=== PATIENT | male | born 1960 | race Caucasian/White ===

== ENCOUNTER 2017-04-20 08:26 | Inpatient (IN) | payer OTHER ==
[~2017-04-20] VITALS: Ht 175.3 cm; Wt 63.5 kg
[~2017-04-20 08:26] MED LIST: DUONEB 3 MG/3 ML3 ML INH; ENULOSE 2020 GM/30 M PO; FOLIC ACID 1 MG PO; FOLIC ACID0.4 MG PO; FUROSEMIDE40 MG PO; GOOD NEIGHBOR100 M5 PR; LEVOTHROID0.15 MG PO; LEVOTHYROXINE0.05 M1 PO; LORAZEPAM1 MG PO; MAG-OX 400400 MG PO; MAGNESIUM OXID400 MG PO; MIRALAX17 GM PO; MULTIVITAMIN PO; NOVAPLUS V0.09 MG/Ac INH; PRILOSEC OTC20 MG PO; PROAIR HFA0.09 MG/Ac INH; PROTONIX 40MG T40 MG PO; SPIRIVA 18 MCG18 MCG INH; SYMBICORT 160/41 PUF INH; Senokot S PO; TAMSULOSIN HYD0.4 MG PO; Theragran Vitamins PO; VENTOLIN1 PUF INH; VITAMIN B1100 MG PO; ZORVOLEX18 MG TOP
--- NOTE | 2017-04-20 08:34 | NUR ---
PT BIBA FROM HOME FOR COUGH X 12 DAYS. PRODUCTIVE WHITE SPUTUM. ALSO C/O WEAKNESS. DENIES RECENT FALLS BUT IS AFRAID HE WILL FALL DUE TO HIS WEAKNESS. RA SATS 98%, DR MALDONADO AT BEDSIDE FOR EVAL UPON PT'S ARRIVAL TO ROOM.
--- NOTE | 2017-04-20 08:39 | ED DYSPNEA/ASTHMA COMPLAINT ---
History of Present Illness General Chief Complaint: Dyspnea (COPD, CHF, Other) Stated Complaint: BIBA COUGH X 12 DAYS Source: patient, old records, EMS Exam Limitations: no limitations Vital Signs & Intake/Output Vital Signs & Intake/Output Vital Signs Date Time Temp Pulse Resp B/P B/P Pulse O2 O2 Flow FiO2 Mean Ox Delivery Rate 04/20 1015 97.0 96 20 98/62 96 Room Air 04/20 1000 98 Room Air 04/20 0832 97.8 120 20 87/67 98 Room Air Allergies Coded Allergies: NO KNOWN ALLERGIES (10/15/12) Reconcile Medications No Known Home Medications Triage Note: PT BIBA FROM HOME FOR COUGH X 12 DAYS. PRODUCTIVE WHITE SPUTUM. ALSO C/O WEAKNESS. DENIES RECENT FALLS BUT IS AFRAID HE WILL FALL DUE TO HIS WEAKNESS. RA SATS 98%, DR MALDONADO AT BEDSIDE FOR EVAL UPON PT'S ARRIVAL TO ROOM. Triage Nurses Notes Reviewed? yes HPI: Patient presents with a worsening productive cough, chills and rib pain that has been worsening over the past 2 weeks. Patient states that he feels very short of breath and that gets worse when he walks around. Patient states he has a productive cough and now whenever he coughs he gets a sharp stabbing pain in his left lower rib cage. There is no pain when he is not coughing. Patient denies any orthopnea. Patient denies any chest pain except as noted above with the rib pain. There is no nausea or vomiting however he does have anorexia. The pain in his left lower rib cage he rates as a 7 out of 10. There is no radiation of the pain. Past History Travel History Traveled to [place] past 21 day No Medical History Any Pertinent Medical History? see below for history Neurological: NONE EENT: NONE Cardiovascular: DVT s/p IVC filter Respiratory: NONE Gastrointestinal: Hx GI bleed Hepatic: NONE Renal: NONE Musculoskeletal: NONE Psychiatric: alcohol dependence, history of nicotine dependence Endocrine: pancreatitis history of borderline/ low serum thyroxine Blood Disorders: IVC FILTER Cancer(s): TRACHEAL ESOPHAGEAL History of MRSA: No History of VRE: No History of CDIFF: No Surgical History Surgical History: non-contributory Psychosocial History Who do you live with Family Services at Home None What is your primary language Luxembourgish Tobacco Use: Current Daily Use Daily Tobacco Use Amount/Type: => 5 Cigarettes daily ETOH Use: denies use Illicit Drug Use: denies illicit drug use Family History Family History, If Any: Relation not specified for: FH: cancer of digestive organ FH: stroke Hx Contributory? No Review of Systems Review of Systems Constitutional: Reports: see HPI, chills. EENTM: Reports: no symptoms. Respiratory: Reports: see HPI, cough, short of breath, sputum production. Cardiovascular: Reports: see HPI, chest pain. GI: Reports: see HPI. Genitourinary: Reports: no symptoms. Musculoskeletal: Reports: no symptoms. Skin: Reports: no symptoms. Neurological/Psychological: Reports: no symptoms. Hematologic/Endocrine: Reports: no symptoms. Immunologic/Allergic: Reports: no symptoms. All Other Systems: Reviewed and Negative Physical Exam Physical Exam General Appearance: well developed/nourished, alert, awake, moderate distress Head: atraumatic, normal appearance Eyes: Bilateral: PERRL, EOMI. Ears, Nose, Throat: normal pharynx, normal ENT inspection, hearing grossly normal Neck: normal inspection, supple, full range of motion Respiratory: decreased breath sounds, rhonchi, TENDER TO PALPATION Cardiovascular: regular rate/rhythm, normal peripheral pulses Gastrointestinal: normal bowel sounds, soft, non-tender, no organomegaly Extremities: normal inspection, normal capillary refill, normal range of motion, no edema Neurologic/Psych: no motor/sensory deficits, awake, alert, oriented x 3, normal mood/affect Skin: intact, normal color, warm/dry Lymphatic: no anterior cervical austyn Comments: Cachectic appearing Core Measures ACS in differential dx? Yes ASA ordered for poss ACS? No-ACS ruled out Severe Sepsis Present: No Septic Shock Present: No Progress Differential Diagnosis: AMI, bronchitis, costochondritis, COPD, musculoskeletal pain, pulmonary embolism, pneumonia, pneumothorax Plan of Care: Orders Procedure Date/time Status Regular Diet 04/20 L Active Admit to inpatient 04/20 1055 Active BLOOD CULTURE 04/20 1043 Active URINALYSIS 04/20 0837 Active TROPONIN LEVEL 04/20 0837 Complete ETHANOL 04/20 0837 Complete COMPREHENSIVE METABOLIC PANEL 04/20 0837 Complete CBC WITHOUT DIFFERENTIAL 04/20 0837 Complete EKG 04/20 0837 Active Current Medications Sig/Steven Start time Last Medication Dose Stop Time Status Admin Azithromycin 500 MG ONCE ONE 04/20 1045 UNVr (Zithromax) 04/20 1144 Sodium Chloride 250 ML (Normal Saline 0.9%) Ceftriaxone Sodium 1,000 MG ONCE ONE 04/20 1045 UNVr (Rocephin) 04/20 1046 Laboratory Tests 04/20/17 0849: Anion Gap 13, Estimated GFR > 60, BUN/Creatinine Ratio 21.3, Glucose 121 H, Calcium 8.3 L, Total Bilirubin 1.0, AST 41, ALT 42, Alkaline Phosphatase 250 H , Troponin I < 0.01, Total Protein 5.7 L, Albumin 2.6 L, Globulin 3.1, Albumin /Globulin Ratio 0.8 L, CBC w Diff MAN DIFF ORDERED, RBC 3.50 L, MCV 96.2 H, MCH 32.1 H, RDW 14.6 H, MPV 6.1 L, Gran % 93.2 H, Lymphocytes % 3.3 L, Monocytes % 3.5, Eosinophils % 0, Basophils % 0 L, Absolute Granulocytes 14.5 H, Segmented Neutrophils 86 H, Band Neutrophils 7 H, Absolute Lymphocytes 0.5 L, Lymphocytes 2 L, Monocytes 5, Absolute Monocytes 0.6, Absolute Eosinophils 0 , Absolute Basophils 0, Platelet Estimate ADEQUATE, Normocytic RBCs VERIFIED, Normochromic RBCs VERIFIED, PUBS MCHC 33.4, Serum Alcohol 16.0 Microbiology 04/20 1051 BLOOD: Blood Culture - RECD 04/20 1043 BLOOD: Blood Culture - ORD Diagnostic Imaging: Viewed by Me: Radiology Read. Discussed w/RAD: Radiology Read. CXR Impression: PATIENT: RENE LAGUNAS JR PRESENT AGE: 56 PATIENT ACCOUNT NO: [id number] : 56 LOCATION: [facility] ORDERING PHYSICIAN: BERTHA MALDONADO MD SERVICE DATE: 04/20/17 EXAM TYPE: RAD - XRY-CHEST XRAY, PA AND LATERAL EXAMINATION: XR CHEST CLINICAL INFORMATION: Cough COMPARISON: Chest x-ray dated 05/31/2016 TECHNIQUE: 2 views of the chest were obtained. FINDINGS: Significant airspace opacity noted in the left upper lobe notably involving the superior lingular segment and anterior segment left upper lobe. Findings are suspicious for lobar pneumonia in the appropriate clinical setting. Differential possibility includes bronchial obstruction and atelectatic changes Follow-up chest x-ray after treatment is recommended. No gross pleural effusion. IMPRESSION: Wedge-shaped opacity left upper lobe suspicious for lobar pneumonia in the appropriate clinical setting. Differential possibility includes bronchial obstruction and atelectasis. Follow-up chest x- ray after treatment recommended. DICTATED BY: ASIA MILLAN MD DATE/TIME DICTATED:04/20/17927 EXPORT DOCUMENTS CLERK:SWAPNIL DATE/TIME TRANSCRIBED:927 CONFIDENTIAL, DO NOT COPY WITHOUT APPROPRIATE AUTHORIZATION. < Electronically signed in Other Vendor System> SIGNED BY: ASIA MILLAN MD 04/20/17 0934 Initial ED EKG: NSR, nonspecific ST T wave chg Prior EKG: unchanged Departure Departure Disposition: STILL A PATIENT Condition: Fair Clinical Impression Primary Impression: Pneumonia Secondary Impressions: Hyponatremia Referrals: MANUEL MARTINEZ MD (PCP/Family) Departure Forms: Customer Survey General Discharge Information Prescriptions: Current Visit Scripts No Known Home Medications Admission Note Spoke With: DENIS FRITZ M.D Documentation of Exam: Documentation of any treatments & extenuating circumstances including Concerns Regarding Discharge (functional status, medication knowledge or non-compliance, living conditions, etc.) that warrant an admission rather than observation: [IV fluids, IV antibiotics, pulmonary consult patient does have a history of cancer and he is 3 years post-chemotherapy.] Critical Care Note Critical Care Note Critical Care Time: mins: (45 MIN)
--- NOTE | 2017-04-20 08:50 | NUR ---
PT TO X-RAY
--- NOTE | 2017-04-20 08:53 | NUR ---
LABS DRAWN AND SENT BY THIS [facility] BLUE, SST, LAV, PINK, ARREAGA
--- NOTE | 2017-04-20 09:04 | NUR ---
BACK FROM X-RAY
[2017-04-20 09:07] LABS: ABSOLUTE BASOPHIL COUNT 0 /CUMM (0.0-0.2); ABSOLUTE EOSINOPHIL COUNT 0 /CUMM (0.0-0.7); ABSOLUTE GRANULOCYTE CT 14.5 /CUMM (1.4-6.5); ABSOLUTE LYMPH COUNT 0.5 /CUMM (1.2-3.4); ABSOLUTE MONOCYTE COUNT 0.6 /CUMM (0.10-0.60); BASOPHIL % 0 % (0.0-2.0); EOSINOPHIL % 0 % (0-5); GRANULOCYTE % 93.2 % (42.2-75.2); HEMATOCRIT 33.6 % (42-52); MEAN CORPUSCULAR HGB 32.1 PG (27.0-31.0); MEAN CORPUSCULAR HGB CONC 33.4 G/DL (33.0-37.0); MEAN CORPUSCULAR VOLUME 96.2 FL (80.0-94.0); MEAN PLATELET VOLUME 6.1 FL (7.4-10.4); PLATELET COUNT 401 /CUMM (130-400); RBC DISTRIBUTION WIDTH 14.6 % (11.5-14.5); WHITE BLOOD CELL COUNT 15.6 /CUMM (4.8-10.8)
--- NOTE | 2017-04-20 09:34 | RADIOLOGY REPORT ---
EXAMINATION: XR CHEST CLINICAL INFORMATION: Cough COMPARISON: Chest x-ray dated 05/31/2016 TECHNIQUE: 2 views of the chest were obtained. FINDINGS: Significant airspace opacity noted in the left upper lobe notably involving the superior lingular segment and anterior segment left upper lobe. Findings are suspicious for lobar pneumonia in the appropriate clinical setting. Differential possibility includes bronchial obstruction and atelectatic changes Follow-up chest x-ray after treatment is recommended. No gross pleural effusion. IMPRESSION: Wedge-shaped opacity left upper lobe suspicious for lobar pneumonia in the appropriate clinical setting. Differential possibility includes bronchial obstruction and atelectasis. Follow-up chest x-ray after treatment recommended.
--- NOTE | 2017-04-20 09:56 | NUR ---
PT. GIVEN URINAL, REQUESTED TO GIVE URINE SAMPLE WHEN ABLE
--- NOTE | 2017-04-20 10:30 | NUR ---
AWARE OF NEED FOR URINE. URINAL AT BEDSIDE. AWAITING POC/DISPO. Informed waiting has been performed.
--- NOTE | 2017-04-20 10:44 | NUR ---
DR MALDONADO IN TO REVIEW POC. ANTICIPATE ADMISSION.
--- NOTE | 2017-04-20 10:51 | NUR ---
LUNCH ORDERED. PT ASKING FOR ENSURE, ORDERED WITH LUNCH
--- NOTE | 2017-04-20 10:54 | NUR ---
1ST SET OF CULTURES DRAWN AND SENT BY THIS [facility]
--- NOTE | 2017-04-20 10:56 | NUR ---
2ND SET OF CULTURES DRAWN BY THIS [facility]
--- NOTE | 2017-04-20 11:32 | NUR ---
PT ADMITTED TO ROOM 229-1
[2017-04-20 11:43] VITALS: BP 100/60
--- NOTE | 2017-04-20 11:43 | NUR ---
PT STATES LAST DRINK WAS 3 DAYS AGO. CIWA INITIATED.
--- NOTE | 2017-04-20 11:54 | History & Physical ---
[facility] 04/20/17 1154: General Information and HPI MD Statement: I have seen and personally examined RENE LAGUNAS and documented this H& P. The patient is a 56 year old M who presented with a patient stated chief complaint of [worsening cough and shortness of breath]. 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 He presents with worsening shortness of breath and cough for the past 12 days. His cought is productive of brownish sputum with no hemoptysis. His cough and sputum production is worsened by standing upright and by ambulation. He also has worsening shortness of breath with wheezing especially when he walks. He has been getting progressively weaker and has poor appetite for over 2 weeks now. He denies fevers, chills or malaise. He has some symptoms of dysphagia and loss of appetite which has been going on for several months. He has lost about 20 lbs over the past 12 days and about 40 lbs since the start of the year. He denies abdominal pain, constipation or diarrhea or hematochezia. He denies dysuria. He does not have any sick/coughing contacts and lives in a room in his niece's house. He is unemployed and has no "run out of disability payments". 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 Of note, he has not seen any physician in at least a year. He drinks alcohol and his last drink was 3 beers about 3 days ago. He also stated that he had a ? "Cauterization of his lung" by a doctor in [facility] or [place] last year for hemoptysis. Allergies/Medications Allergies: Coded Allergies: NO KNOWN ALLERGIES (10/15/12) Home Med list No Known Home Medications Past History Travel History Traveled to [place] past 21 day No Medical History Neurological: NONE EENT: NONE Cardiovascular: DVT s/p IVC filter Respiratory: NONE Gastrointestinal: Hx GI bleed Hepatic: NONE Renal: NONE Musculoskeletal: NONE Psychiatric: alcohol dependence, history of nicotine dependence Endocrine: pancreatitis history of borderline/ low serum thyroxine Blood Disorders: IVC FILTER Cancer(s): TRACHEAL ESOPHAGEAL History of MRSA: No History of VRE: No History of CDIFF: No Surgical History Surgical History: non-contributory Past Family/Social History Family History Relations & Conditions if any Relation not specified for: FH: cancer of digestive organ FH: stroke Psychosocial History Where do you live? Home Who Do You Live With? 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 Denies: fever, malaise, weakness. EENTM: Denies: blurred vision, nasal congestion, throat pain. Cardiovascular: Denies: chest pain, palpitations, syncope. Respiratory: Reports: wheezing. Denies: hemoptysis, short of breath. GI: Denies: bloating, constipation, melena, nausea, vomiting. Genitourinary: Denies: dysuria. Musculoskeletal: Denies: joint pain, muscle stiffness. Exam & Diagnostic Data Last 24 Hrs of Vital Signs/I&O Vital Signs Date Time Temp Pulse Resp B/P B/P Pulse O2 O2 Flow FiO2 Mean Ox Delivery Rate 04/20 1404 96.8 63 18 94/62 97 /01 1327 Room Air 04/20 1143 98.9 100 20 100/60 06/ 1142 98.9 100 20 100/60 96 Room Air 04/20 1015 97.0 96 20 98/62 96 Room Air 04/20 1000 98 Room Air 04/20 0832 97.8 120 20 87/67 98 Room Air Intake & Output 04/20 1600 04/20 0800 04/20 0000 Intake Total 350 Output Total Balance 350 Intake, IV 350 Patient 140 lb Weight Physical Exam General Appearance Alert, Oriented X3, Cooperative, No Acute Distress, Cachectic Skin No Rashes Skin Temp/Moisture Exam: Warm/Dry Sepsis Skin Exam (color): Normal for Ethnicity HEENT Atraumatic, PERRLA, EOMI Neck Supple, No JVD, No thryomegaly Lymphatic Cervical nl Cardiovascular Regular Rate, Normal S1, Normal S2, No Murmurs Lungs Bronchial breath sounds in left lower lung with reduced breath sounds in the left upper lobe, Right lung has few basilar crackles and wheeze with normal air entry Abdomen Normal Bowel Sounds, Soft, No Tenderness, No Hepatospenomegaly, No Masses Neurological Normal Speech, Strength at 5/5 X4 Ext, Normal Tone Extremities No Edema, Normal Pulses Vascular Normal Pulses, Pulses Symmetrical Sepsis Peripheral Pulse Location: Radial Sepsis Peripheral Pulse Exam: Normal Sepsis Cap Refill Exam: <2 Sec Last 24 Hrs of Labs/Mane: Laboratory Tests 04/20/17 0849: Anion Gap 13, Estimated GFR > 60, BUN/Creatinine Ratio 21.3, Glucose 121 H, Hemoglobin A1c Pending, Calcium 8.3 L, Total Bilirubin 1.0, AST 41, ALT 42, Alkaline Phosphatase 250 H, Troponin I < 0.01, Total Protein 5.7 L, Albumin 2.6 L, Globulin 3.1, Albumin/Globulin Ratio 0.8 L, TSH 8.130 H, CBC w Diff MAN DIFF ORDERED, RBC 3.50 L, MCV 96.2 H, MCH 32.1 H, RDW 14.6 H, MPV 6.1 L , Gran % 93.2 H, Lymphocytes % 3.3 L, Monocytes % 3.5, Eosinophils % 0, Basophils % 0 L, Absolute Granulocytes 14.5 H, Segmented Neutrophils 86 H, Band Neutrophils 7 H, Absolute Lymphocytes 0.5 L, Lymphocytes 2 L, Monocytes 5, Absolute Monocytes 0.6, Absolute Eosinophils 0, Absolute Basophils 0, Platelet Estimate ADEQUATE, Normocytic RBCs VERIFIED, Normochromic RBCs VERIFIED , PUBS MCHC 33.4, Serum Alcohol 16.0 Microbiology 04/20 1203 URINE ROUT: Urine Culture - COLB 04/20 1203 LOWER RESP: Respiratory Culture - COLB 04/20 1203 LOWER RESP: Gram Stain - COLB 04/20 1055 BLOOD: Blood Culture - RECD 04/20 1051 BLOOD: Blood Culture - RECD Diagnostic Data EKG Results Sinus tachycardia, non specific T wave changes. Assessment/Plan Assessment: Mr. 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 He presents with worsening shortness of breath and productive cough for the past 12 days along with weakness. In addition, he is malnourished and cachectic. Given, his past history of tracheal cancer, his current symptoms are concerning for pneumonia with possible bronchial obstruction from a recurrence of his cancer. He also has some symptoms of dysphagia and loss of appetite. Problem list 1. Sepsis from community acquired pneumonia 2. Concern for bronchial obstruction from recurrence of tracheal cancer 3. Dysphagia 4. Malnutrition 5. Alcohol abuse Plan 1. Sepsis from community acquired pneumonia * Admit to general medicine * Lactic acid now, and repeat in 3 hrs * Blood culturesX2 * Sputum cultures, urine culture * IV normal saline @200 cc/hr * IV ceftriaxone 1 g daily * IV azithromycin 500 mg daily * Monitor vital signs closely * Monitor CBC for WBC * PO tylenol for fever 2. Concern for bronchial obstruction from recurrence of tracheal cancer * Given his past history of cancer, we will obtain a pulmonary consultation * CT Chest and CT neck with IV contrast * TRC evaluation 3. Dysphagia * Speech\\swallow evaluation in the AM * Mechanical soft diet with thin liquids pending evaluation 4. Malnutrition with hyponatremia * patient has hyponatremia likely related to chronic malnutrition * IV normal saline at 75 cc/hr * Repeat Na in 3 hours time * Monitor electrolytes and Na * Nutrition consult in the AM 5. Alcohol abuse * Stated that his last drink was 3 days ago * Monitor CIWA protocol * IV ativan as per CIWA scores 6. DVT prophylaxis * SC lovenox 40 Units daily 7. Code status * Full code As Ranked By This Provider Problem List: 1. Sepsis 2. Pneumonia 3. Hyponatremia Core Measures/Miscellaneous Acute Coronary Syndrome ACS Diagnosis: No Cerebrovascular Accident CVA/TIA Diagnosis: No Congestive Heart Failure CHF Diagnosis: No Venous Thromboembolism VTE Risk Factors: Acute medical illness, Age > 40, Cancer/chemo/oth therapy No Mech VTE prophylaxis d/t: No contraindications No VTE Pharm Prophylaxis d/t: No contraindications VTE Diagnosis: No VTE Type: NONE VTE Confirmed by (Test): NONE Severe Sepsis Severe Sepsis Present: No Septic Shock Septic Shock Present: No Miscellaneous Documentation Attending Case Discussed With: LAUREL JOHNSON MD Primary Care Physician: MANUEL MARTINEZ MD Patient sees these Specialists None Level of Patient Care: General Medicine LAUREL JOHNSON MD 04/20/17 1407: Attending MD Review Statement Attending Statement Attending MD Statement: examined this patient, discuss w/resident/PA/LOSS PREVENTION CONSULTANT, agreed w/resident/PA/LOSS PREVENTION CONSULTANT, reviewed EMR data (avail) Attending Assessment/Plan: 56M PMH tracheal cancer s/p chemoradiaton, GERD, EtOH abuse admitted for progressive shortness of breath, dyspnea on exertion, cough with brown sputum, and 20 pound unintentional weight loss over the past month. Patient feels weak and appears malnourished. He reports difficulty swallowing thicker foods, no issues with liquids. His appetite is decreased. He continues to drink and smoke. Afebrile, borderline low BP, HR 120 on admission, saturating well. WBC 15.6, sodium 127, normal renal function. 1. GUY pneumonia 2. Sepsis 3. Malnutrition 4. Unintentional weight loss 5. Dysphagia 6. History of tracheal cancer Plan - Admit to general medicine - Start Ceftriaxone and Azithromycin - Sputum cultures - Nutrition consult - Monitor electrolytes - Pulmonary consult - CT neck with contrast to evaluate for potential return of malignancy - Speech therapy consult for dysphagia - IV hydration - Monitor sodium level - Continue home medications - PRN Ativan per CIWA in case of eventual withdrawal symptoms - DVT PPx
--- NOTE | 2017-04-20 11:55 | NUR ---
REPORT TO CARRILLO PEREZ ON 2NA.
--- NOTE | 2017-04-20 12:14 | NUR ---
MEDICATED WITH PERCOCET PER EMAR PRIOR TO TRANSFER TO FLOOR.
--- NOTE | 2017-04-20 12:54 | NUR ---
PT TO FLOOR VIA STRETCHER. ALL PAPERWORK AND BELONGINGS SENT. CLNICAL STATUS UNCHANGED.
[2017-04-20 14:04] VITALS: BP 94/62
--- NOTE | 2017-04-20 14:09 | Admission Certification ---
Admission Certification Certification Statement - As attending physician, I certify that at the time of - admission, based on clinical presentation, severity of - symptoms, need for further diagnostic testing and - therapeutic interventions, and risk of adverse outcomes - without in-hospital treatment, in my clinical assessment, - this patient requires an acute hospital stay for a minimum - of two nights or longer. I have also considered psychsocial - factors such as support system, advanced age, financial - issues, cognitive issues, and failed out-patient treatments, - past re-admission history, safety of patient, and lack of - compliance as applicable. Specific rationale supporting this admission is: Sepsis secondary to pneumonia
--- NOTE | 2017-04-20 17:00 | NUR ---
PT TAKEN DOWN TO CT SCAN AT THIS TIME
--- NOTE | 2017-04-20 21:49 | CT SCAN REPORT ---
EXAMINATION: CT CHEST WITH CONTRAST CLINICAL INFORMATION: Productive cough. Shortness of breath. History of tracheal cancer. Presumptive diagnosis of pneumonia. Question bronchial obstruction. COMPARISON: CT scan of the chest dated 10/26/2013. CT scan of the abdomen dated 04/20/2015. TECHNIQUE: Multidetector volumetric CT imaging of the chest was obtained after the administration of 60 mL of intravenous Optiray 350. Sagittal and coronal reformations were obtained. DLP: 174.40 mGy-cm. FINDINGS: LUNGS: There is diffuse circumferential soft tissue thickening involving the trachea and the tracheal bifurcation extending along the right and left main stem bronchi. This is more extensive than on the previous CT scan from 10/26/2013 and measures up to 0.4 cm in thickness. There is mild circumferential luminal narrowing of the left mainstem bronchus. Abrupt cut off of the left upper lobe bronchus is seen with large area of dense consolidation and volume loss seen involving the entire lingula and likely portions of the anterior segment of the left upper lobe. Central areas of the consolidated lingular segment appear to have a liquefactive component with irregular hypodense areas with internal loculations of air seen, suspicious for developing abscesses. The consolidation from the lingula appears to extend across the major fissure into the anterior inferior aspect of the left lower lobe with dense consolidation seen in this location. Remainder of the left lower lobe is remarkable only for some mild dependent atelectasis. There remains aeration of the left upper lobe apical posterior and anterior segments with patchy reticular and groundglass opacity seen. The right lung is fully expanded. In the right upper lobe peripherally, an irregularly shaped 1.3 x 0.8 cm nodule is seen with associated thick and irregular bands seen extending to the pleural surfaces. There are also small adjacent satellite nodules seen. There is underlying centrilobular and paraseptal emphysema. The central airways are thickened. No pleural effusion is seen. LYMPHATIC STRUCTURES: No mediastinal, hilar or axillary adenopathy. THYROID GLAND: Unremarkable to the extent included. CARDIOVASCULAR STRUCTURES: Aortic and heart size normal. Trace pericardial effusion. UPPER ABDOMEN: Included portions of the solid organs in the upper abdomen within normal limits. OSSEOUS STRUCTURES: There is moderate vertebral endplate spurring seen throughout the lower cervical and the thoracic spine. No suspicious bone findings are seen. IMPRESSION: 1. Complete cut off of the left mainstem bronchus is seen, suspicious for an endobronchial mass. Associated postobstructive dense consolidation and volume loss is seen in the lingula and portions of the anterior segment of the left upper lobe with suspicion of internal evolving abscesses. Less extensive consolidative changes are seen in the apical posterior segment of the left upper lobe. 2. Diffuse thickening of the thoracic trachea and bifurcation is seen, progressive when compared to the 2013 exam. This may represent infiltrative malignancy in this patient with known history of tracheal cancer or may represent posttreatment changes. Close clinical correlation is requested with endobronchial biopsy for further assessment. 3. Irregularly shaped nodular density with associated satellite nodules in the right upper lobe. This may represent a small focus of endobronchial spread of infection versus a malignant mass. Short interval follow-up evaluation post treatment of the left lung pneumonia is recommended to document resolution of findings. 4. Mild emphysema. Findings discussed with Dr. Alana Nation 04/20/2017, 9:40 PM.
[2017-04-20 23:37] VITALS: BP 100/60
[2017-04-21] VITALS: BP 100/60
--- NOTE | 2017-04-21 01:16 | Event Note ---
Event Note Event Note: Dr. Pugh spoke to me regarding the CT results. BC grew GPC, will repeat BCX2. Patient has received ceftriaxone and azithromycin. Obstructive pneumonia and pulmonary abscess is now in our differentials Plan: Started clindamycin for anaerobic coverage. Continue ceftriazone and azithromycin Pulmonary evaluation in am ENT evaluation in am Repeat BCX2 Noted lactic acid trended up to 3, despite receiving IVF. Gave 1L bolus. Repeat lactic acid came down to 2.1, Na also improved from 127 to 130.
[2017-04-21 06:00] VITALS: BP 110/62
--- NOTE | 2017-04-21 07:10 | CT SCAN REPORT ---
CT NECK WITH CONTRAST CLINICAL INFORMATION: Question bronchial obstruction. COMPARISON: Chest CT performed the same day. TECHNIQUE: CT acquisition of the neck obtained following the administration of 60 mL of Optiray 350 intravenous contrast without complication. FINDINGS: There is an ulcerative lesion centered within the left palatine tonsil of the oropharynx that extends to the anterior margin of the left glossotonsillar sulcus. Lesion measures up to 2 cm TV by 2 cm AP. There is no cervical lymphadenopathy. The parotid glands are homogeneous in attenuation. The submandibular glands are normal. The thyroid gland is normal. No retropharyngeal fluid collection is seen. The laryngeal structures are normal. The parapharyngeal fat is preserved. The carotid sheath vasculature opacify normally. No extra mucosal soft tissue mass or fluid collection is seen. The lungs and mediastinum are described on the chest CT performed at the same time as this study. Please see that report for further details. The mastoid air cells and visualized portions of the paranasal sinuses are well-aerated. The temporomandibular joints are normal. No periapical disease is identified. Multilevel cervical spondylosis. The imaged portions of the brain parenchyma are unremarkable. IMPRESSION: - There is a 2 cm ulcerative lesion centered within the left palatine tonsil extending to the anterior margin of the left glossotonsillar sulcus that is highly concerning for malignancy. - There is no cervical lymphadenopathy. - The lungs, mediastinum, and trachea are described on the chest CT performed at the same time as this study. Please see that report for further details.
[2017-04-21 07:36] VITALS: BP 110/62
--- NOTE | 2017-04-21 07:47 | PN- Housestaff ---
ISRAEL GAMEZ,[facility] 04/21/17 0747: Subjective Follow-up For: -Shortness of breath and cough -Obstructive pneumoinia -Dysphagia/aspiration Complaints: Cough Subjective: Mr. Milligan continues to have productive cough, shorttness of breath with dysphagia. He also complains of chest pain when he coughs. He denies fevers, chills. He reported non bloody diarrhea X 1 episode this morning. Review of Systems Constitutional: Reports: unexplained weight loss. Denies: chills, fever. EENTM: Reports: blurred vision. Denies: nasal congestion, throat pain. Cardiovascular: Reports: chest pain (With cough). Denies: peripheral edema, syncope. Respiratory: Reports: cough, sputum production. Denies: wheezing. Gastrointestinal: Reports: diarrhea. Denies: abdominal pain, nausea, bloody stool. Objective Last 24 Hrs of Vital Signs/I&O Vital Signs Date Time Temp Pulse Resp B/P B/P Pulse O2 O2 Flow FiO2 Mean Ox Delivery Rate 04/21 0904 91 Room Air Room Air 04/21 0800 Room Air 04/21 0736 97.3 70 18 110/62 98 Room Air / 2337 97.1 66 18 100/60 97 Room Air 04/20 1646 Room Air Room Air 04/20 1404 96.8 63 18 94/62 97 /01 1327 Room Air 06/ 1143 98.9 100 20 100/60 06/01 1142 98.9 100 20 100/60 96 Room Air Intake & Output / 1600 /02 0800 / 0000 Intake Total 1600 Output Total Balance 1600 Intake, IV 1600 Number 1 Bowel Movements Patient 140 lb Weight Physical Exam General Appearance: Alert, Oriented X3, Cooperative, No Acute Distress Skin: No Breakdown Skin Temp/Moisture Exam: Warm/Dry Sepsis Skin Exam (color): Normal for Ethnicity HEENT: Atraumatic, EOMI, Mucous Membr. moist/pink Neck: Supple, No JVD, No thryomegaly Lymphatic: Cervical nl Cardiovascular: Regular Rate, Normal S1, Normal S2, No Murmurs Lungs: Bronchial breath sounds in left lower lung witth reduced breath sounds in upper lobe. Right lung has few basilar crackles. No wheeze Abdomen: Normal Bowel Sounds, Soft, No Tenderness, No Hepatospenomegaly Neurological: Normal Speech, Normal Tone Extremities: No Edema, Normal Pulses Vascular: Normal Pulses, Pulses Symmetrical Current Medications: Current Medications Sig/Steven Start time Last Medication Dose Route Stop Time Status Admin Acetaminophen 650 MG Q6P PRN 04/20 1345 AC PO Albuterol Sulfate 3 ML BID 04/20 2200 AC 04/21 INH 0904 Azithromycin 500 MG Q24H 04/21 1000 AC Sodium Chloride 250 ML IV Azithromycin 500 MG ONCE ONE 04/20 1045 DC 04/20 Sodium Chloride 250 ML IV 04/20 1144 1100 Ceftriaxone Sodium 1,000 MG DAILY 04/21 1000 AC 04/21 IV 0933 Ceftriaxone Sodium 0 .STK-MED ONE 04/20 1105 DC .ROUTE Clindamycin 600 MG Q8H 04/21 0200 AC 04/21 Dextrose/Water 50 ML IV 0941 Enoxaparin Sodium 40 MG DAILY 04/20 1326 AC 04/20 SC 1443 Folic Acid 1 MG DAILY 04/20 1325 AC 04/21 PO 0931 Hydromorphone HCl 0.6 MG Q6PRN PRN 04/20 1345 AC 04/21 IV 0927 Levothyroxine Sodium 0.1 MG DAILY AC 04/20 1536 AC 04/21 PO 0700 Lorazepam 0 Q1P PRN 04/20 1400 AC IV Multivitamins 1 TAB DAILY 04/20 1325 AC 04/21 PO 0931 Nicotine 21 MG DAILY 04/20 1615 AC 04/21 TOP 0942 Oxycodone HCl 5 MG Q6P PRN 04/20 1345 AC 04/21 PO 0827 Oxycodone/ 0 .STK-MED ONE 04/20 1218 DC Acetaminophen PO Oxycodone/ 1 TAB ONCE ONE 04/20 1215 DC 04/20 Acetaminophen PO 04/20 1216 1214 Sodium Chloride 1,000 ML BOLUS ONE 04/20 2345 DC 04/21 IV 04/21 0044 0100 Sodium Chloride 1,000 ML BOLUS ONE 04/20 1500 CAN IV 04/20 1659 Sodium Chloride 1,000 ML .Q5H 04/20 1330 AC 04/21 IV 0922 Thiamine HCl 100 MG DAILY 04/20 1325 AC 04/21 PO 0932 Last 24 Hrs of Lab/Mane Results Last 24 Hrs of Labs/Mics: Laboratory Tests 04/21/17 0640: Anion Gap 7, Estimated GFR > 60, BUN/Creatinine Ratio 25.0, CBC w Diff NO MAN DIFF REQ, RBC 2.84 L, MCV 98.2 H, MCH 32.7 H, RDW 14.6 H, MPV 6.6 L, Gran % 91.5 H, Lymphocytes % 4.5 L, Monocytes % 3.7, Eosinophils % 0.2, Basophils % 0.1, Absolute Granulocytes 13.4 H, Absolute Lymphocytes 0.7 L, Absolute Monocytes 0.5, Absolute Eosinophils 0, Absolute Basophils 0, PUBS MCHC 33.3 04/21/17 0250: Lactic Acid 2.1 04/20/17 2310: Lactic Acid 3.0 H 04/20/17 1820: Urinalysis LIGHT H, Urine Color ORANG H, Urine Clarity CLEAR, Urine pH 6.0, Ur Specific [place] 1.015, Urine Protein 30 H, Urine Ketones 15 H, Urine Nitrite NEG, Urine Bilirubin NEG@ICTO, Urine Urobilinogen 2.0 H, Ur Leukocyte Esterase NEG, Ur Microscopic SEDIMENT EXAMINED, Urine RBC RARE, Urine WBC RARE, Urine Bacteria RARE H, Urine Mucus RARE, Urine Hemoglobin NEG, Urine Glucose NEG 04/20/17 1750: 04/20/17 1750: Lactic Acid 2.2 H 04/20/17 1545: Lactic Acid 2.1 Microbiology 04/21 0250 BLOOD: Blood Culture - RECD 04/21 0250 BLOOD: Blood Culture - RECD 04/20 1820 URINE ROUT: Urine Culture - RES 04/20 1440 LOWER RESP: Respiratory Culture - RES GRAM NEGATIVE RODS 04/20 1440 LOWER RESP: Gram Stain - RES 04/20 1055 BLOOD: Blood Culture - RES GRAM POSITIVE COCCI 04/20 1051 BLOOD: Blood Culture - RECD Assessment/Plan Assessment: Mr. 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 He presents with worsening shortness of breath and productive cough for the past 12 days along with weakness. In addition, he is malnourished and cachectic. Given, his past history of tracheal cancer, his current symptoms are concerning for pneumonia with possible bronchial obstruction from a recurrence of his cancer. He also has some symptoms of dysphagia and loss of appetite. Problem list 1. Sepsis from community acquired pneumonia 2. Concern for bronchial obstruction from recurrence of tracheal cancer 3. Dysphagia 4. Malnutrition 5. Alcohol abuse Plan 1. Sepsis from obstructive pneumonia vs aspiration pneumonia * Sputum cx growing G- rods and 1 set of blood cx growing G+ cocci (? Contaminant) * Follow up final blood and sputum cultures * Continue IV ceftriaxone 1 g daily and IV azithromycin 500 mg daily * DC clindamycin * Continue IV normal saline @200 cc/hr * Monitor vital signs closely * Monitor CBC for WBC * PO tylenol for fever * Oxycodone and IV dilaudid for chest pain with cough 2. Dysphagia with concern for bronchial obstruction from recurrence of tracheal cancer * Pulmonary consult appreciated * CT Chest and CT neck with IV contrast shows obstructive bronchial lesion and tonsilar mass suspicious for cancer * Sputum cytology X 3 * ENT consult sent-Dr. Lyle * Speechand swallow eval * TRC evaluation 3. Dysphagia * NPO for now Speech\swallow evaluation this AM 4. Malnutrition with hyponatremia * Hyponatremia is resolving. Likely related to chronic malnutrition * Change IV D5/normal saline at 200 cc/hr after current bag Monitor electrolytes and Na Nutrition consult appreciated 5. Alcohol abuse * Stated that his last drink was 3 days prior to presentation * Monitor CIWA protocol IV ativan as per CIWA scores 6. DVT prophylaxis SC lovenox 40 Units daily 7. Code status Full code Problem List: 1. Pneumonia 2. Sepsis 3. Obstructive pneumonia Pain Ratin Pain Location: Chest with cough Pain Goal: Pain 4 or less Pain Plan: Oxycodone, IV dilaudid PRN Tomorrow's Labs & Rationales: CBC, BEP for sepsis and hyponatremia DVT/Prophylaxis: pharmacological LAUREL JOHNSON MD 04/21/17 1843: Attending MD Review Statement Attending Statement Attending MD Statement: examined this patient, discuss w/resident/PA/CHIMNEY BUILDER, agreed w/resident/PA/CHIMNEY BUILDER, reviewed EMR data (avail) Attending Assessment/Plan: 56M PMH tracheal cancer s/p chemoradiaton, GERD, EtOH abuse admitted for progressive shortness of breath, dyspnea on exertion, cough with brown sputum, and 20 pound unintentional weight loss over the past month. Patient feels weak and appears malnourished. He reports difficulty swallowing thicker foods, no issues with liquids. His appetite is decreased. He continues to drink and smoke. Afebrile, borderline low BP, HR 120 on admission, saturating well. WBC 15.6, sodium 127, normal renal function. Patient feels a bit better today. WBC improved slightly from 15 to 14, sodium improved to 130. CT neck shows ulcerated tonsillar lesions with tracheal thickening concerning for malignancy. Blood culture growing GPC in 1 set, sputum culture growing GNR. 1. GUY pneumonia 2. Sepsis 3. Malnutrition 4. Unintentional weight loss 5. Dysphagia 6. History of tracheal cancer Plan - Continue on general medicine - Continue Ceftriaxone and Azithromycin - Follow cultures, adjust antibiotics accordingly - Nutrition consult - Monitor electrolytes - Pulmonary consult - ENT consult for oral malignant lesions - Speech therapy consult for dysphagia - IV hydration - Monitor sodium level - Continue home medications - PRN Ativan per CIWA in case of eventual withdrawal symptoms - DVT PPx
[2017-04-21 07:55] LABS: ABSOLUTE BASOPHIL COUNT 0 /CUMM (0.0-0.2); ABSOLUTE EOSINOPHIL COUNT 0 /CUMM (0.0-0.7); ABSOLUTE GRANULOCYTE CT 13.4 /CUMM (1.4-6.5); ABSOLUTE LYMPH COUNT 0.7 /CUMM (1.2-3.4); ABSOLUTE MONOCYTE COUNT 0.5 /CUMM (0.10-0.60); BASOPHIL % 0.1 % (0.0-2.0); EOSINOPHIL % 0.2 % (0-5); MEAN CORPUSCULAR HGB 32.7 PG (27.0-31.0); MEAN CORPUSCULAR HGB CONC 33.3 G/DL (33.0-37.0); MEAN CORPUSCULAR VOLUME 98.2 FL (80.0-94.0); MEAN PLATELET VOLUME 6.6 FL (7.4-10.4); RBC DISTRIBUTION WIDTH 14.6 % (11.5-14.5); RED BLOOD CELL CT 2.84 /CUMM (4.70-6.10); WHITE BLOOD CELL COUNT 14.6 /CUMM (4.8-10.8)
--- NOTE | 2017-04-21 08:12 | Cons- Pulmonary ---
General Information and HPI Consulting Request Date of Consult: 04/21/17 Requested By: Dr. 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 He has had hemoptysis in the past which has required intervention. He has been told that he was in remission, noting he was previously followed at [facility] (Dr. Castillo). The patient also has a history of alcohol abuse with cirrhosis and multiple admissions for alcohol withdrawal, COPD, and DVT status post IVC filter off anticoagulation. The patient presented with a 12 day history of worsening shortness of breath, and cough productive of significant sputum. His sputum has been green in color and he denies any hemoptysis. He also has had a decrease in appetite associated with severe weight loss. He reports losing 40 pounds since the beginning of the year. He has had significant progressive weakness, noting he cannot ambulate without the assistance of furniture around his home. The patient was evaluated in the ED and found to initially be borderline hypotensive with an elevated lactate. He received IV fluid resuscitation. His oxygen saturations were maintained in the high 90s on room air. The patient had a leukocytosis and hyponatremia on his laboratory studies as well. Chest x-ray demonstrated a wedge shaped left upper lobe opacity suspicious for lobar pneumonia. The patient was pancultured and placed on the floor with IV ceftriaxone and azithromycin. Because of the patient's history a CT scan of the chest was performed that showed complete cutoff of the left mainstem bronchus suspicious for an endobronchial mass associated with postobstructive dense consolidation and volume loss left side. There was also diffuse thickening of the thoracic trachea and bifurcation thought to represent infiltrative malignancy versus posttreatment changes. There were irregularly shaped densities in the right of unclear etiology. CT of the neck showed a 2 cm ulcerative lesion within the left palatine tonsil with additional extension, highly concerning for malignancy. The patient reports that his cough continues to be bothersome for him. He's having difficulty swallowing and "keeping food down." He appears to actively be aspirating during the interview. Allergies/Medications Allergies: Coded Allergies: NO KNOWN ALLERGIES (10/15/12) Home Med List: No Known Home Medications Current Medications: Current Medications Sig/Steven Start time Last Medication Dose Route Stop Time Status Admin Acetaminophen 650 MG Q6P PRN 04/20 1345 AC PO Albuterol Sulfate 3 ML BID 04/20 2200 AC INH Azithromycin 500 MG Q24H 04/21 1000 AC Sodium Chloride 250 ML IV Azithromycin 500 MG ONCE ONE 04/20 1045 DC 04/20 Sodium Chloride 250 ML IV 04/20 1144 1100 Ceftriaxone Sodium 1,000 MG DAILY 04/21 1000 AC IV Ceftriaxone Sodium 0 .STK-MED ONE 04/20 1105 DC .ROUTE Ceftriaxone Sodium 1,000 MG ONCE ONE 04/20 1045 DC 04/20 IV 04/20 1046 1100 Clindamycin 600 MG Q8H 04/21 0200 AC 04/21 Dextrose/Water 50 ML IV 0240 Enoxaparin Sodium 40 MG DAILY 04/20 1326 AC 04/20 SC 1443 Folic Acid 1 MG DAILY 04/20 1325 AC 04/20 PO 1442 Hydromorphone HCl 0.6 MG Q6PRN PRN 04/20 1345 AC 04/21 IV 0315 Levothyroxine Sodium 0.1 MG DAILY AC 04/20 1536 AC 04/21 PO 0700 Lorazepam 0 Q1P PRN 04/20 1400 AC IV Multivitamins 1 TAB DAILY 04/20 1325 AC 04/20 PO 1442 Nicotine 21 MG DAILY 04/20 1615 AC 04/20 TOP 1917 Oxycodone HCl 5 MG Q6P PRN 04/20 1345 AC 04/21 PO 0210 Oxycodone/ 0 .STK-MED ONE 04/20 1218 DC Acetaminophen PO Oxycodone/ 1 TAB ONCE ONE 04/20 1215 DC 04/20 Acetaminophen PO 04/20 1216 1214 Oxycodone/ 0 .STK-MED ONE 04/20 0849 DC Acetaminophen PO Oxycodone/ 1 TAB ONCE ONE 04/20 0845 DC 04/20 Acetaminophen PO 04/20 0846 0845 Sodium Chloride 1,000 ML BOLUS ONE 04/20 2345 DC 04/21 IV 04/21 0044 0100 Sodium Chloride 1,000 ML BOLUS ONE 04/20 1500 CAN IV 04/20 1659 Sodium Chloride 1,000 ML .Q5H 04/20 1330 AC 04/21 IV 0410 Thiamine HCl 100 MG DAILY 04/20 1325 AC 04/20 PO 1443 Review of Systems Review of Systems Constitutional: Reports: malaise, weakness, unexplained weight loss. Denies: chills, diaphoresis, fever. EENTM: Denies: no symptoms. Cardiovascular: Denies: chest pain, edema, orthopena, palpitations, peripheral edema, syncope. Respiratory: Reports: cough, short of breath, sputum production, wheezing. Denies: hemoptysis, orthopnea, stridor. GI: Denies: abdominal pain, bloating, constipation, diarrhea, distention, bowel incontinence, melena, nausea, bloody stool, changes in stool. Genitourinary: Denies: no symptoms. Musculoskeletal: Denies: no symptoms. All Other Systems: Reviewed and Negative Past History Travel History Traveled to [place] past 21 day No Medical History Blood Transfusion Hx: Yes Neurological: NONE EENT: NONE Cardiovascular: DVT s/p IVC filter Respiratory: NONE Gastrointestinal: Hx GI bleed Hepatic: NONE Renal: NONE Musculoskeletal: NONE Psychiatric: alcohol dependence, history of nicotine dependence Endocrine: pancreatitis history of borderline/ low serum thyroxine Blood Disorders: IVC FILTER Cancer(s): TRACHEAL ESOPHAGEAL Surgical History Surgical History: non-contributory Family History Relations & Conditions If Any: Relation not specified for: FH: cancer of digestive organ FH: stroke Psychosocial History Where Do You Live? Home Who Do You Live With? 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 Exam & Diagnostic Data Last 24 Hrs of Vital Signs/I&O Vital Signs Date Time Temp Pulse Resp B/P B/P Pulse O2 O2 Flow FiO2 Mean Ox Delivery Rate 04/21 0736 97.3 70 18 110/62 98 Room Air 04/20 2337 97.1 66 18 100/60 97 Room Air 04/20 1646 Room Air Room Air 04/20 1404 96.8 63 18 94/62 97 / 1327 Room Air 04/20 1143 98.9 100 20 100/60 06/ 1142 98.9 100 20 100/60 96 Room Air 04/20 1015 97.0 96 20 98/62 96 Room Air 04/20 1000 98 Room Air 04/20 0832 97.8 120 20 87/67 98 Room Air Intake & Output 04/21 1600 04/21 0800 04/21 0000 Intake Total 1600 Output Total Balance 1600 Intake, IV 1600 Number 1 Bowel Movements Physical Exam General Appearance: chronically ill, thin, coughing and aspirating Head: atraumatic, normal appearance Neck: supple, no palpable mass Respiratory: bilateral ronchi, few faint wheezes Cardiovascular: regular rate/rhythm, distant heart sounds Gastrointestinal: normal bowel sounds, soft, non-tender Extremities: no edema Skin: intact, normal color, warm/dry Last 48 Hrs of Labs/Mane: Laboratory Tests 04/21/17 0640: Sodium Pending, Potassium Pending, Chloride Pending, Carbon Dioxide Pending, Anion Gap Pending, BUN Pending, Creatinine Pending, BUN/Creatinine Ratio Pending , CBC w Diff Pending, WBC Pending, RBC Pending, Hgb Pending, Hct Pending, MCV Pending, MCH Pending, RDW Pending, Plt Count Pending, MPV Pending, PUBS MCHC Pending 04/21/17 0250: Lactic Acid 2.1 04/20/17 2310: Lactic Acid 3.0 H 04/20/17 1820: Urinalysis LIGHT H, Urine Color ORANG H, Urine Clarity CLEAR, Urine pH 6.0, Ur Specific [place] 1.015, Urine Protein 30 H, Urine Ketones 15 H, Urine Nitrite NEG, Urine Bilirubin NEG@ICTO, Urine Urobilinogen 2.0 H, Ur Leukocyte Esterase NEG, Ur Microscopic SEDIMENT EXAMINED, Urine RBC RARE, Urine WBC RARE, Urine Bacteria RARE H, Urine Mucus RARE, Urine Hemoglobin NEG, Urine Glucose NEG 04/20/17 1750: 04/20/17 1750: Lactic Acid 2.2 H 04/20/17 1545: Lactic Acid 2.1 04/20/17 0849: Anion Gap 13, Estimated GFR > 60, BUN/Creatinine Ratio 21.3, Glucose 121 H, Hemoglobin A1c 5.8, Calcium 8.3 L, Total Bilirubin 1.0, AST 41, ALT 42, Alkaline Phosphatase 250 H, Troponin I < 0.01, Total Protein 5.7 L, Albumin 2.6 L, Globulin 3.1, Albumin/Globulin Ratio 0.8 L, TSH 8.130 H, CBC w Diff MAN DIFF ORDERED, RBC 3.50 L, MCV 96.2 H, MCH 32.1 H, RDW 14.6 H, MPV 6.1 L , Gran % 93.2 H, Lymphocytes % 3.3 L, Monocytes % 3.5, Eosinophils % 0, Basophils % 0 L, Absolute Granulocytes 14.5 H, Segmented Neutrophils 86 H, Band Neutrophils 7 H, Absolute Lymphocytes 0.5 L, Lymphocytes 2 L, Monocytes 5, Absolute Monocytes 0.6, Absolute Eosinophils 0, Absolute Basophils 0, Platelet Estimate ADEQUATE, Normocytic RBCs VERIFIED, Normochromic RBCs VERIFIED , PUBS MCHC 33.4, Serum Alcohol 16.0 Diagnostic Data CXR Results Wedge-shaped opacity left upper lobe suspicious for lobar pneumonia in the appropriate clinical setting. Differential possibility includes bronchial obstruction and atelectasis. Follow-up chest x-ray after treatment recommended. Other Results CT chest: 1. Complete cut off of the left mainstem bronchus is seen, suspicious for an endobronchial mass. Associated postobstructive dense consolidation and volume loss is seen in the lingula and portions of the anterior segment of the left upper lobe with suspicion of internal evolving abscesses. Less extensive consolidative changes are seen in the apical posterior segment of the left upper lobe. 2. Diffuse thickening of the thoracic trachea and bifurcation is seen, progressive when compared to the 2013 exam. This may represent infiltrative malignancy in this patient with known history of tracheal cancer or may represent posttreatment changes. Close clinical correlation is requested with endobronchial biopsy for further assessment. 3. Irregularly shaped nodular density with associated satellite nodules in the right upper lobe. This may represent a small focus of endobronchial spread of infection versus a malignant mass. Short interval follow-up evaluation post treatment of the left lung pneumonia is recommended to document resolution of findings. 4. Mild emphysema. CT neck: - There is a 2 cm ulcerative lesion centered within the left palatine tonsil extending to the anterior margin of the left glossotonsillar sulcus that is highly concerning for malignancy. - There is no cervical lymphadenopathy. - The lungs, mediastinum, and trachea are described on the chest CT performed at the same time as this study. Please see that report for further details. Assessment/Plan Impression/Plan: 1. Left upper lobe pneumonia with a possible obstructing endobronchial lesion, rule out recurrence of malignancy. History of endobronchial SCC in 2012. 2. Two cm ulcerative lesion centered within the left palatine tonsil extending to the anterior margin of the left glossotonsillar sulcus that is highly suspicious for malignancy. 3. Progressive weight loss likely secondary to recurrent malignancy. 4. History of COPD without evidence of significant exacerbation. 5. DVT, s/p IVC filter, not on anticoagulation. 6. ETOH abuse. Recommendations: * Urgent speech therapy evaluation and modified barium swallow. * Check sputum for cytology x 3. * ENT consult for evaluation of the 2 cm lesion in the left tonsil which is concerning for malignancy. Please request ENT cart at the bedside and the consult for today. * Follow up cultures. * Continue empiric antibiotic therapy. * Obtain oncology records from [facility] Dr. Jonathan Rodriguez. * Continue multivitamin, thiamine and folate. Monitor for ETOH withdrawl. * DVT prophylaxis at all times. * The patient may require fiberoptic bronchoscopy if tissue biopsy can not be acquired by ENT or sputum cytology. * Thank you for the consult, will continue to follow with you and provide further recommendations as necessary. Consult Acknowledgment - Thank you for your consult request.
[2017-04-21 08:34] LABS: HEMATOCRIT 27.8 % (42-52)
[2017-04-21 08:57] LABS: GRANULOCYTE % 91.5 % (42.2-75.2); PLATELET COUNT 293 /CUMM (130-400)
[2017-04-21 15:18] VITALS: BP 118/62
--- NOTE | 2017-04-21 16:34 | Cons- Ear,Nose&Throat ---
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 He developed shortness of breath and cough for the past 12 days. His cought is productive of brownish sputum with no hemoptysis. This was accompanied by some difficulty in swallowing. There was no throat pain. No voice changes. He denies fevers, chills or malaise. He has some symptoms of dysphagia and loss of appetite which has been going on for several months. He has lost about 20 lbs over the past 12 days and about 40 lbs since the start of the year. Of note, he has not seen any physician in at least a year. He drinks alcohol and his last drink was 3 beers about 3 days ago. He also stated that he had a ? "Cauterization of his lung" by a doctor in [facility] or [place] last year for hemoptysis. Allergies/Medications Allergies: Coded Allergies: NO KNOWN ALLERGIES (10/15/12) Home Med List: No Known Home Medications Current Medications: Current Medications Sig/Steven Start time Last Medication Dose Route Stop Time Status Admin Acetaminophen 650 MG Q6P PRN 04/20 1345 AC PO Albuterol Sulfate 3 ML BID 04/20 2200 AC 04/21 INH 0904 Azithromycin 500 MG Q24H 04/21 1000 AC / Sodium Chloride 250 ML IV 1234 Ceftriaxone Sodium 1,000 MG DAILY 04/21 1000 AC 04/21 IV 0933 Clindamycin 600 MG Q8H 04/21 0200 DC 04/21 Dextrose/Water 50 ML IV 0941 Cyanocobalamin/ 1 BAG Q24H 04/21 1300 AC Thiamine/Pyridoxine IV Dextrose/Sodium 1,000 ML Chloride Dextrose/Sodium 1,000 ML Q8H 04/21 2100 AC 04/21 Chloride IV 1234 Enoxaparin Sodium 40 MG DAILY 04/20 1326 AC 04/20 SC 1443 Folic Acid 1 MG DAILY 04/20 1325 DC 04/21 PO 0931 Hydromorphone HCl 0.6 MG Q6PRN PRN 04/20 1345 AC 04/21 IV 1508 Levothyroxine Sodium 0.1 MG DAILY AC 04/20 1536 AC 04/21 PO 0700 Lorazepam 0 Q1P PRN 04/20 1400 AC IV Multivitamins 1 MARIA VICTORIA Q6H 04/21 1215 CAN Dextrose/Sodium 1,000 ML IV Chloride Multivitamins 1 TAB DAILY 04/20 1325 DC 04/21 PO 0931 Nicotine 21 MG DAILY 04/20 1615 AC 04/21 TOP 0942 Oxycodone HCl 5 MG Q6P PRN 04/20 1345 AC 04/21 PO 1411 Patient Medication 1 ED .STK-MED ONE 04/21 1437 PA Teaching ED 04/21 1438 Sodium Chloride 1,000 ML BOLUS ONE 04/20 2345 DC 04/21 IV / 0044 0100 Sodium Chloride 1,000 ML .Q5H 04/20 1330 DC 04/21 IV 0922 Thiamine HCl 100 MG DAILY 04/20 1325 DC 04/21 PO 0932 Past History Medical History Blood Transfusion Hx: Yes Neurological: NONE EENT: NONE Cardiovascular: DVT s/p IVC filter Respiratory: NONE Gastrointestinal: Hx GI bleed Hepatic: NONE Renal: NONE Musculoskeletal: NONE Psychiatric: alcohol dependence, history of nicotine dependence Endocrine: pancreatitis history of borderline/ low serum thyroxine Blood Disorders: IVC FILTER Cancer(s): TRACHEAL ESOPHAGEAL Surgical History Pertinent Surgical History: non-contributory Family History Relations & Conditions If Any: Relation not specified for: FH: cancer of digestive organ FH: stroke Psychosocial History Where Do You Live? Home Who Do You Live With? 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 Review of Systems Review of Systems: Noncontributory Exam & Diagnostic Data Vital Signs and I&O Vital Signs Date Time Temp Pulse Resp B/P B/P Pulse O2 O2 Flow FiO2 Mean Ox Delivery Rate 04/21 1518 97.7 81 20 118/62 91 Room Air 04/21 0904 91 Room Air Room Air 04/21 0800 Room Air 04/21 0736 97.3 70 18 110/62 98 Room Air 04/21 0600 97.3 70 18 110/62 04/21 0000 Room Air 04/21 0000 97.1 66 18 100/60 06 2337 97.1 66 18 100/60 97 Room Air 04/20 1646 Room Air Room Air Intake & Output 04/21 1600 / 0800 04/21 0000 04/20 1600 04/20 0800 04/20 0000 Intake Total 1040 2500 1600 870 Output Total 590 600 Balance 450 1900 1600 870 Intake, IV 800 2400 1600 750 Intake, Oral 240 100 120 Number 1 1 Bowel Movements Output, Urine 590 600 Patient 140 lb 140 lb Weight Physical Exam: Well-developed, well-nourished male without acute distress, somewhat cachectic Head: normocephalic, atraumatic Ears: Canals- clear; Tympanic Membranes- clear Nose: Septum-midline ; Turbinates- clear; Airway-patent Oral cavity: Mucosa- clear Oropharynx: Tonsils surgically removed ; Posterior wall- clear; left lateral wall fullness mucosally covered, erythema, area of what appears to be purulent drainage Neck: supple, no adenopathy Fiberoptic laryngoscopy: Fiberoptic scope inserted via the left nostril Nasopharynx: Clear Hypopharynx: 2 x 2 centimeter fullness within the left lateral hypopharyngeal wall, mucosal erythema, questionable purulent drainage; Piriform sinuses-Clear; posterior wall-; mucosa-clear Larynx: Epiglottis- intact; vocal cords-mobile; posterior commissure-clear ; esophageal inlet -intact Procedure; Patient was seated in the bed in upright position oropharynx was exposed left oropharynx visualized to tongue blades were used to palpate and compress the pharyngeal lesion. This resulted in extrusion of purulent drainage reached and patient was able to expectorate and cough without, At this point it became clear that the lateral hypopharyngeal wall fullness was secondary to hypopharyngeal abscess which was drained at the bedside CT neck 04/20/2017: Ulcerative lesion centers of the left bowel achieving tonsillar region, 2 x 2 centimeters , no adenopathy. Assessment/Plan Assessment/Plan 1. Hypopharyngeal abscess, left lateral hypopharyngeal wall s/p I&D of the left side Patient needs to have anaerobic coverage, either Unisym or Flagyl with current ceftriaxone Follow-up in the office in 2 weeks to reassess. he needs to be on antibiotics for 2 weeks If the fullness persist, patient may then need biopsy, considering the patient is at risk for carcinoma based on his smoking and drinking history Please have patient gargle with saline and peroxide mixed 50-50 4 times a day Consult Acknowledgment - Thank you for your consult request. Attending MD Review Statement Attending Statement Attending MD Statement: examined this patient, discuss w/resident/PA/[employer]
--- NOTE | 2017-04-21 16:34 | RADIOLOGY REPORT ---
EXAMINATION: XR MODIFIED BARIUM SWALLOW CLINICAL INFORMATION: Dysphagia. Tonsillar mass. History of tracheal cancer. COMPARISON: CT neck dated 04/20/2017. TECHNIQUE: A modified barium swallow was performed with speech pathologist in attendance. Pur?e, honey thick, nectar thick, thin, bread, and cracker consistencies were given to the patient and the swallowing mechanism was observed fluoroscopically with several spot films taken. FLUOROSCOPY TIME: 2 minutes 57 seconds. FINDINGS: With all consistencies, the oral phase of swallowing is normal. With thin liquids, there is penetration of contrast down to the level of the vocal cords without cough reflex. This is also seen with chin tuck maneuver. With other consistencies, no penetration was seen. With all consistencies, mild to moderate pooling of contrast is noted in the valleculae, with incomplete clearance. IMPRESSION: 1. Silent penetration down to the cords with thin liquids is seen. 2. Pooling of contrast is noted in the valleculae with all consistencies. 3. Speech pathologist assessment issued separately.
[2017-04-21 22:29] VITALS: BP 102/60
[2017-04-22 06:24] VITALS: BP 112/70
--- NOTE | 2017-04-22 07:47 | PN- Housestaff ---
ISRAEL GAMEZ,[facility] 04/22/17 0746: Subjective Follow-up For: -Shortness of breath and cough -Obstructive pneumoinia -Dysphagia/aspiration Complaints: Cough Subjective: Mr. Milligan continues to have productive cough, shortness of breath with dysphagia. He also complains of chest pain which is worse when he coughs. He denies fevers, chills. Review of Systems Constitutional: Denies: chills, fever, weakness. EENTM: Denies: blurred vision, ear pain. Cardiovascular: Reports: chest pain. Denies: edema, palpitations. Respiratory: Reports: cough, orthopnea, short of breath, sputum production. Gastrointestinal: Denies: diarrhea, nausea. Genitourinary: Denies: dysuria, frequency. Objective Last 24 Hrs of Vital Signs/I&O Vital Signs Date Time Temp Pulse Resp B/P B/P Pulse O2 O2 Flow FiO2 Mean Ox Delivery Rate 04/22 0624 98.7 94 16 112/70 91 Room Air 04/21 2229 97.7 96 18 102/60 90 04/21 1600 Room Air 04/21 1518 97.7 81 20 118/62 91 Room Air 04/21 0904 91 Room Air Room Air Intake & Output 04/22 1600 03 0800 06 0000 Intake Total 1000 1115 Output Total 200 500 Balance 800 615 Intake, IV 1000 875 Intake, Oral 240 Output, Urine 200 500 Physical Exam General Appearance: Alert, Oriented X3, Cooperative, No Acute Distress Skin: No Rashes Skin Temp/Moisture Exam: Warm/Dry HEENT: Atraumatic, PERRLA, EOMI, Mucous Membr. moist/pink Neck: Supple, No JVD, No thryomegaly Lymphatic: Cervical nl Cardiovascular: Regular Rate, Normal S1, Normal S2, No Murmurs Lungs: Bilateral coarse crepitaions and bronchial breath sounds Abdomen: Normal Bowel Sounds, Soft, No Tenderness Neurological: Normal Speech, Normal Tone Extremities: No Cyanosis, No Edema Vascular: Normal Pulses, Pulses Symmetrical Current Medications: Current Medications Sig/Steven Start time Last Medication Dose Route Stop Time Status Admin Acetaminophen 650 MG Q6P PRN 04/20 1345 AC PO Albuterol Sulfate 3 ML BID 04/20 2200 AC 04/21 INH 0904 Azithromycin 500 MG Q24H 04/21 1000 AC 04/21 Sodium Chloride 250 ML IV 1234 Ceftriaxone Sodium 1,000 MG DAILY 04/21 1000 AC 04/21 IV 0933 Clindamycin 600 MG Q8H 04/21 0200 AK 04/21 Dextrose/Water 50 ML IV 0941 Cyanocobalamin/ 1 BAG Q24H 04/21 1300 04/21 Thiamine/Pyridoxine IV 1639 Dextrose/Sodium 1,000 ML Chloride Dextrose/Sodium 1,000 ML Q8H 04/21 2100 04/21 Chloride IV 1234 Enoxaparin Sodium 40 MG DAILY 04/20 1326 04/20 SC 1443 Folic Acid 1 MG DAILY 04/20 1325 AK 04/21 PO 0931 Hydromorphone HCl 0.6 MG ONCE ONE 04/21 1630 AK 04/21 IV 04/21 1631 1639 Hydromorphone HCl 0.6 MG Q6PRN PRN 04/20 1345 04/22 IV 0330 Levothyroxine Sodium 0.1 MG DAILY AC 04/20 1536 04/22 PO 0621 Lorazepam 0 Q1P PRN 04/20 1400 AC IV Metronidazole 500 MG IQ8 04/21 1645 04/22 N/A 1 UNIT IV 0111 Multivitamins 1 MARIA VICTORIA Q6H 04/21 1215 CAN Dextrose/Sodium 1,000 ML IV Chloride Multivitamins 1 TAB DAILY 04/20 1325 AK 04/21 PO 0931 Nicotine 21 MG DAILY 04/20 1615 04/21 TOP 0942 Oxycodone HCl 5 MG Q6P PRN 04/20 1345 04/22 PO 0227 Patient Medication 1 ED .STK-MED ONE 04/21 1437 AK Teaching ED 04/21 1438 Sodium Chloride 1,000 ML .Q5H 04/20 1330 AK 04/21 IV 0922 Thiamine HCl 100 MG DAILY 04/20 1325 AK 04/21 PO 0932 Last 24 Hrs of Lab/Mane Results Last 24 Hrs of Labs/Mics: Laboratory Tests 04/22/17 0630: Anion Gap 6, Estimated GFR > 60, BUN/Creatinine Ratio 18.0, CBC w Diff Pending, WBC Pending, RBC Pending, Hgb Pending, Hct Pending, MCV Pending, MCH Pending, RDW Pending, Plt Count Pending, MPV Pending, PUBS MCHC Pending Assessment/Plan Assessment: Mr. 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 He presents with worsening shortness of breath and productive cough for the past 12 days along with weakness. In addition, he is malnourished and cachectic. Given, his past history of tracheal cancer, his current symptoms are concerning for pneumonia with possible bronchial obstruction from a recurrence of his cancer. He also has some symptoms of dysphagia and loss of appetite. Problem list 1. Sepsis from community acquired pneumonia vs aspiration pneumonia 2. Concern for bronchial obstruction from recurrence of tracheal cancer 3. Dysphagia 4. Malnutrition 5. Alcohol abuse Plan 1. Sepsis from obstructive pneumonia vs aspiration pneumonia * Sputum cx growing G- rods and 1 set of blood cx growing G+ cocci (? Contaminant) * Follow up final blood and sputum cultures * Continue IV ceftriaxone 1 g daily and IV azithromycin 500 mg daily * Continue IV metronidazole * Follow up pulmonology recommendations * Continue IV normal saline @125 cc/hr * Monitor vital signs closely * Monitor CBC for WBC * PO tylenol for fever * Continue Oxycodone and increase frequency of IV dilaudid to 0.6 mg Q4PRN for chest pain with cough 2. Dysphagia with concern for bronchial obstruction from recurrence of tracheal cancer * Pulmonary consult appreciated * CT Chest and CT neck with IV contrast shows obstructive bronchial lesion and tonsilar mass suspicious for cancer * Sputum cytology X 3 * ENT consult-Dr. Lyle was at bedside yesterday and did a ENT scope during which she drained a hypopharyngeal abscess. She recommends continuing antibiotics and outpatient pharyngeal biopsy after infection is cleared. * Speechand swallow eval recommended mechanical ground nectar thick diet after Modified Barium Swallow * TRC evaluation 3. Malnutrition with hyponatremia * Hyponatremia is resolving. Likely related to chronic malnutrition * Continue IV D5/Normal saline at 125 cc/hr Monitor electrolytes and Na Nutrition consult appreciated 4. Alcohol abuse * Stated that his last drink was 3 days prior to presentation * Monitor CIWA protocol IV ativan as per CIWA scores 5. DVT prophylaxis SC lovenox 40 Units daily 6. Code status Full code Problem List: 1. Sepsis 2. Pneumonia 3. Hyponatremia Pain Ratin Pain Location: Chest with cough Pain Goal: Pain 4 or less Pain Plan: Oxycodone, IV dilaudid PRN Tomorrow's Labs & Rationales: CBC, BEP for sepsis and hyponatremia DVT/Prophylaxis: pharmacological ERIN GAMEZ,YAEL 04/22/17 1305: Attending MD Review Statement Attending Statement Attending MD Statement: examined this patient, discuss w/resident/PA/TAPE STRINGER, agreed w/resident/PA/TAPE STRINGER, discussed with family, reviewed EMR data (avail), discussed with nursing, discussed with case mgmt, reviewed images, amended to note Attending Assessment/Plan: Patient sitting comfortably in bed. Complains of productive cough and difficulty swallowing. Denies any fever or chills. Afebrile for more than 24 hours, white count trending down. Had drainage of hypopharyngeal abscess by Dr. Lyle at bedside yesterday. Status post modified barium swallow. Recommendations 1. Continue IV ceftriaxone, azithromycin and metronidazole. 2. Follow up culture results and identification and sensitivity 3. Continue with mechanical ground nectar thick diet and speech therapy 4. Adequate pain control.
[2017-04-22 08:00] VITALS: BP 112/70
[2017-04-22 08:14] LABS: ABSOLUTE BASOPHIL COUNT 0 /CUMM (0.0-0.2); ABSOLUTE EOSINOPHIL COUNT 0 /CUMM (0.0-0.7); ABSOLUTE GRANULOCYTE CT 9.6 /CUMM (1.4-6.5); ABSOLUTE LYMPH COUNT 0.7 /CUMM (1.2-3.4); ABSOLUTE MONOCYTE COUNT 0.7 /CUMM (0.10-0.60); BASOPHIL % 0 % (0.0-2.0); EOSINOPHIL % 0.4 % (0-5); HEMATOCRIT 25.9 % (42-52); MEAN CORPUSCULAR HGB 32.6 PG (27.0-31.0); MEAN CORPUSCULAR HGB CONC 33.4 G/DL (33.0-37.0); MEAN CORPUSCULAR VOLUME 97.6 FL (80.0-94.0); MEAN PLATELET VOLUME 6.8 FL (7.4-10.4); PLATELET COUNT 234 /CUMM (130-400); RBC DISTRIBUTION WIDTH 14.8 % (11.5-14.5); RED BLOOD CELL CT 2.66 /CUMM (4.70-6.10); WHITE BLOOD CELL COUNT 11.1 /CUMM (4.8-10.8)
--- NOTE | 2017-04-22 10:22 | NUR ---
ATTEMPTED TO SEE Pt 3X THIS AM. ON THIRD ATTEMPT VITALS WERE TAKEN BY THIS SINGLE NEEDLE OPERATOR. O2 WAS AT 88% ON RA WITH HR 105. DICUSSED WITH NURSING AND Pt WAS PLACED BACK ON O2 AT THIS TIME. WILL F/U APPROPRIATE.
--- NOTE | 2017-04-22 13:03 | PN- Pulmonary ---
Subjective HPI/Critical Care Issues: Doing well s/p drainage of his hypopharnygeal abscess stil has sig fatigue Objective Current Medications: Current Medications Sig/Steven Start time Last Medication Dose Route Stop Time Status Admin Acetaminophen 650 MG Q6P PRN 04/20 1345 PO Albuterol Sulfate 3 ML BID 04/20 2200 04/22 INH 0846 Azithromycin 500 MG Q24H / 1000 04/22 Sodium Chloride 250 ML IV 0949 Ceftriaxone Sodium 1,000 MG DAILY 04/21 1000 04/22 IV 0949 Cyanocobalamin/ 1 BAG Q24H / 1300 04/22 Thiamine/Pyridoxine IV 1240 Dextrose/Sodium 1,000 ML Chloride Dextrose/Sodium 1,000 ML Q8H / 2100 04/21 Chloride IV 1234 Enoxaparin Sodium 40 MG DAILY 04/20 1326 04/22 SC 1243 Hydromorphone HCl 0.6 MG Q4P PRN 04/22 0830 04/22 IV 1240 Hydromorphone HCl 0.6 MG ONCE ONE 04/21 1630 PR 04/21 IV 04/21 1631 1639 Hydromorphone HCl 0.6 MG Q6PRN PRN 04/20 1345 PR 04/22 IV 0330 Levothyroxine Sodium 0.1 MG DAILY 04/20 1536 04/22 PO 0621 Lorazepam 0 Q1P PRN 04/20 1400 AC IV Metronidazole 500 MG IQ8 04/21 1645 04/22 N/A 1 UNIT IV 0826 Nicotine 21 MG DAILY 04/20 1615 04/22 TOP 0949 Oxycodone HCl 5 MG Q6P PRN 04/20 1345 04/22 PO 0949 Patient Medication 1 ED .STK-MED ONE 04/21 1437 PR Teaching ED 04/21 1438 Vital Signs & I&O Last 24 Hrs of Vitals and I&O: Vital Signs Date Time Temp Pulse Resp B/P B/P Pulse O2 O2 Flow FiO2 Mean Ox Delivery Rate 04/22 0850 91 Room Air Room Air / 0800 Room Air / 0800 98.7 94 16 112/70 / 0624 98.7 94 16 112/70 91 Room Air / 2229 97.7 96 18 102/60 90 /02 1600 Room Air 04/21 1518 97.7 81 20 118/62 91 Room Air Intake & Output 04/22 1600 04/22 0800 06 0000 Intake Total 1000 1115 Output Total 200 500 Balance 800 615 Intake, IV 1000 875 Intake, Oral 240 Output, Urine 200 500 Impression/Plan Impression/Plan Impression/Plan: Physical Exam General Appearance Alert, Oriented X3, Cooperative, No Acute Distress, Cachectic Skin No Rashes Skin Temp/Moisture Exam: Warm/Dry Sepsis Skin Exam (color): Normal for Ethnicity HEENT Atraumatic, PERRLA, EOMI Neck Supple, No JVD, No thryomegaly Lymphatic Cervical nl Cardiovascular Regular Rate, Normal S1, Normal S2, No Murmurs Lungs Bronchial breath sounds in left lower lung with reduced breath sounds in the left upper lobe, Right lung has few basilar crackles and wheeze with normal air entry Abdomen Normal Bowel Sounds, Soft, No Tenderness, No Hepatospenomegaly, No Masses Neurological Normal Speech, Strength at 5/5 X4 Ext, Normal Tone Extremities No Edema, Normal Pulses Vascular Normal Pulses, Pulses Symmetrical The patient is a 56-year-old male with a past medical history significant for 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 He has had hemoptysis in the past which has required intervention. He has been told that he was in remission, noting he was previously followed at [facility] (Dr. Castillo). The patient also has a history of alcohol abuse with cirrhosis and multiple admissions for alcohol withdrawal, COPD, and DVT status post IVC filter off anticoagulation. IMPRESSION Left UL pna with a lesion in the bronchus Pharyngeal abscess s/p drainage Wt loss COPD DVT s/p ivc filter Etoh abuse REC Cont current rx IV abx for now Follow cultures Nebs prn sputum for cytology WIll follow
[2017-04-22 14:13] VITALS: BP 118/76
[2017-04-22 22:07] VITALS: BP 118/66
[2017-04-23 06:00] VITALS: BP 116/74
[2017-04-23 06:59] VITALS: BP 116/74
--- NOTE | 2017-04-23 08:45 | PN- Housestaff ---
BLAYNE ARROYO 04/23/17 0844: Subjective Follow-up For: Shortness of breath and cough Obstructive pneumoinia Dysphagia/aspiration Subjective: Patient seen and examined. Productive cough, shortness of breath and dysphagia persists. Reports chest discomfort after each cough. Denies headache, nausea, vomiting, dizziness, lightheadedness, abdominal pain, urinary symptoms. Afebrile, tachycardic this morning vitals otherwise stable. No overnight events reported. Review of Systems Constitutional: Denies: see HPI. Objective Last 24 Hrs of Vital Signs/I&O Vital Signs Date Time Temp Pulse Resp B/P B/P Pulse O2 O2 Flow FiO2 Mean Ox Delivery Rate 04/23 0848 104 20 98/60 94 Nasal 2.0L Cannula 04/23 0659 97.7 85 20 116/74 90 Nasal 2.0L Cannula 04/22 2207 97.7 90 20 118/66 95 Nasal Cannula 04/22 1920 93 Nasal 2.0L Cannula 04/22 1600 Nasal 2.0L Cannula 04/22 1413 98.0 95 18 118/76 91 Intake & Output 04/23 1600 04/23 0800 06 0000 Intake Total 905 Output Total 350 Balance -350 905 Intake, IV 875 Intake, Oral 30 Output, Urine 350 Physical Exam General Appearance: Alert, Oriented X3, Cooperative, No Acute Distress Skin: No Rashes, No Breakdown, No Significant Lesion HEENT: Atraumatic, PERRLA, EOMI, Mucous Membr. moist/pink Neck: Supple, No JVD, No thryomegaly, +2 Carotid Pulse wo Bruit, No LAD Lymphatic: Axillary nl, Cervical nl Cardiovascular: Regular Rate, Normal S1, Normal S2, No Murmurs, Gallops, Rubs Lungs: Bronchial breath sounds, b/l crepitations Abdomen: Normal Bowel Sounds, Soft, No Tenderness, No Hepatospenomegaly, No Masses Neurological: Normal Speech, Normal Tone, Sensation Intact Extremities: No Clubbing, No Cyanosis, No Edema, Normal Pulses, No Tenderness/ Swelling Vascular: Normal Pulses, Pulses Symmetrical Current Medications: Current Medications Sig/Steven Start time Last Medication Dose Route Stop Time Status Admin Acetaminophen 650 MG Q6P PRN 04/20 1345 AC PO Albuterol Sulfate 3 ML BID 04/20 220 AC 04/22 INH 1920 Azithromycin 500 MG Q24H / 1000 AC 06 Sodium Chloride 250 ML IV 0949 Ceftazidime 2,000 MG IQ8 04/23 1600 UNVr Dextrose/Water 50 ML IV Ceftriaxone Sodium 1,000 MG DAILY 04/21 1000 DC 04/22 IV 0949 Cyanocobalamin/ 1 BAG Q24H / 1300 AC 04/22 Thiamine/Pyridoxine IV 1240 Dextrose/Sodium 1,000 ML Chloride Dextrose/Sodium 1,000 ML Q8H 04/21 2100 AC 04/22 Chloride IV 2309 Enoxaparin Sodium 40 MG DAILY 04/20 1326 AC 04/22 SC 1243 Hydromorphone HCl 0.6 MG Q4P PRN 04/22 0830 AC 04/23 IV 0630 Levothyroxine Sodium 0.1 MG DAILY AC 04/20 1536 AC 04/23 PO 0526 Lorazepam 0 Q1P PRN 04/20 1400 AC IV Metronidazole 500 MG IQ8 04/21 1645 AC 04/23 N/A 1 UNIT IV 0838 Nicotine 21 MG DAILY 04/20 1615 AC 04/22 TOP 0949 Oxycodone HCl 5 MG Q6P PRN 04/20 1345 AC 04/23 PO 0520 Last 24 Hrs of Lab/Mane Results Last 24 Hrs of Labs/Mics: Laboratory Tests 04/23/17 0811: Anion Gap 5, Estimated GFR > 60, BUN/Creatinine Ratio 16.0, CBC w Diff Pending, WBC Pending, RBC Pending, Hgb Pending, Hct Pending, MCV Pending, MCH Pending, RDW Pending, Plt Count Pending, MPV Pending, Gran % Pending, Lymphocytes % Pending, Monocytes % Pending, Eosinophils % Pending, Basophils % Pending, Absolute Granulocytes Pending, Absolute Lymphocytes Pending, Absolute Monocytes Pending, Absolute Eosinophils Pending, Absolute Basophils Pending, PUBS MCHC Pending Assessment/Plan Assessment: Mr. 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 He presents with worsening shortness of breath and productive cough for the past 12 days along with weakness. In addition, he is malnourished and cachectic. Given, his past history of tracheal cancer, his current symptoms are concerning for pneumonia with possible bronchial obstruction from a recurrence of his cancer. He also has some symptoms of dysphagia and loss of appetite. Problem list 1. Sepsis from community acquired pneumonia vs aspiration pneumonia 2. Concern for bronchial obstruction from recurrence of tracheal cancer 3. Dysphagia 4. Malnutrition 5. Alcohol abuse Plan 1. Sepsis from obstructive pneumonia vs aspiration pneumonia * Sputum cx growing G- rods and 1 set of blood cx growing G+ cocci (? Contaminant) * Follow up final blood and sputum cultures: BCs from 04/21/17 NTD. * Continue IV ceftaz and IV azithromycin 500 mg daily * Continue IV metronidazole * Follow up pulmonology recommendations * Continue IV D5/Nl at 125 ML/HR * Monitor vital signs closely * Monitor CBC for WBC * PO tylenol for fever * c/w current pain mx 2. Dysphagia with concern for bronchial obstruction from recurrence of tracheal cancer * Pulmonary consult appreciated * CT Chest and CT neck with IV contrast shows obstructive bronchial lesion and tonsilar mass suspicious for cancer * Sputum cytology X 3 * ENT consult-Dr. Lyle was at bedside yesterday and did a ENT scope during which she drained a hypopharyngeal abscess. She recommends continuing antibiotics and outpatient pharyngeal biopsy after infection is cleared. * Speechand swallow eval recommended mechanical ground nectar thick diet after Modified Barium Swallow * TRC evaluation 3. Malnutrition with hyponatremia * Hyponatremia is resolving. Likely related to chronic malnutrition * Continue IV D5/Normal saline at 125 cc/hr Monitor electrolytes and Na Nutrition consult appreciated 4. Alcohol abuse * Stated that his last drink was 3 days prior to presentation * Monitor CIWA protocol IV ativan as per CIWA scores: has not required any IV Lorazepam so far. 5. DVT prophylaxis SC lovenox 40 Units daily 6. Code status Full code Problem List: 1. Pneumonia 2. Hyponatremia 3. Sepsis Pain Ratin Pain Location: Chest discomfort w/cough Pain Goal: Remain pain free Pain Plan: Oxycodone, IV dilaudid PRN Tomorrow's Labs & Rationales: CBC, BEP for sepsis and hyponatremia ERIN GAMEZ,[facility] 04/23/17 1149: Attending Review Statement Attending Statement Attending MD Statement: examined this patient, discuss w/resident/PA/IMPLEMENTATION SERVICES ANALYST, agreed w/resident/PA/IMPLEMENTATION SERVICES ANALYST, discussed with family, reviewed EMR data (avail), discussed with nursing, discussed with case mgmt, reviewed images, amended to note Attending Assessment/Plan: Patient sitting comfortably in bed. Still complains of cough and copious sputum. Lower respiratory culture grew Pseudomonas. Afebrile. White count trended to 10.4 today. Recommendations 1. Will continue IV Zithromax and metronidazole. Stop ceftriaxone and switch her to ceftaz this is already discussed with the agronomy internship. Please follow-up 's recommendations regarding the same. 2. Continue with mechanical ground nectar thick diet and speech therapy. 3. Encourage ambulation 4. Ensure adequate pain control.
[2017-04-23 08:47] LABS: ABSOLUTE BASOPHIL COUNT 0 /CUMM (0.0-0.2); ABSOLUTE EOSINOPHIL COUNT 0.1 /CUMM (0.0-0.7); ABSOLUTE LYMPH COUNT 0.7 /CUMM (1.2-3.4); ABSOLUTE MONOCYTE COUNT 0.6 /CUMM (0.10-0.60); BASOPHIL % 0.3 % (0.0-2.0); EOSINOPHIL % 0.7 % (0-5); HEMATOCRIT 27.9 % (42-52); MEAN CORPUSCULAR HGB 32.1 PG (27.0-31.0); MEAN CORPUSCULAR HGB CONC 32.5 G/DL (33.0-37.0); MEAN CORPUSCULAR VOLUME 98.7 FL (80.0-94.0); MEAN PLATELET VOLUME 6.6 FL (7.4-10.4); PLATELET COUNT 251 /CUMM (130-400); RBC DISTRIBUTION WIDTH 14.6 % (11.5-14.5); RED BLOOD CELL CT 2.83 /CUMM (4.70-6.10); WHITE BLOOD CELL COUNT 10.4 /CUMM (4.8-10.8)
[2017-04-23 08:48] VITALS: BP 98/60
[2017-04-23 09:45] LABS: GRANULOCYTE % 86.8 % (42.2-75.2)
--- NOTE | 2017-04-23 12:39 | PN- Pulmonary ---
Subjective HPI/Critical Care Issues: Copious putrid sputum fatigued Objective Current Medications: Current Medications Sig/Steven Start time Last Medication Dose Route Stop Time Status Admin Acetaminophen 650 MG Q6P PRN 04/20 1345 AC PO Albuterol Sulfate 3 ML BID 04/20 2200 AC 04/23 INH 1123 Azithromycin 500 MG Q24H / 1000 AC 04/23 Sodium Chloride 250 ML IV 0952 Ceftazidime 2,000 MG IQ8 04/24 0800 AC IV Ceftazidime 2,000 MG IQ8 04/23 1600 AC Dextrose/Water 50 ML IV 06 0001 Ceftriaxone Sodium 1,000 MG DAILY 04/21 1000 DC 04/22 IV 0949 Cyanocobalamin/ 1 BAG Q24H 04/21 1300 AC 04/22 Thiamine/Pyridoxine IV 1240 Dextrose/Sodium 1,000 ML Chloride Dextrose/Sodium 1,000 ML Q8H / 2100 AC 04/23 Chloride IV 1222 Enoxaparin Sodium 40 MG DAILY 04/20 1326 AC 04/23 SC 0952 Hydromorphone HCl 0.6 MG Q4P PRN 04/22 0830 AC 04/23 IV 1024 Levothyroxine Sodium 0.1 MG DAILY AC 04/20 1536 AC 04/23 PO 0526 Lorazepam 0 Q1P PRN 06 1400 AC IV Metronidazole 500 MG IQ8 04/21 1645 AC 04/23 N/A 1 UNIT IV 0838 Nicotine 21 MG DAILY 04/20 1615 AC 04/23 TOP 0952 Oxycodone HCl 5 MG Q6P PRN 04/20 1345 AC 04/23 PO 1118 Vital Signs & I&O Last 24 Hrs of Vitals and I&O: Vital Signs Date Time Temp Pulse Resp B/P B/P Pulse O2 O2 Flow FiO2 Mean Ox Delivery Rate 04/23 1123 92 Nasal 2.0L Cannula 04/23 0848 104 20 98/60 94 Nasal 2.0L Cannula 04/23 0659 97.7 85 20 116/74 90 Nasal 2.0L Cannula 04/23 0600 97.7 85 20 116/74 / 0000 95 Nasal 2.0L Cannula 04/22 2207 97.7 90 20 118/66 95 Nasal Cannula 04/22 1920 93 Nasal 2.0L Cannula 04/22 1600 Nasal 2.0L Cannula 06/03 1413 98.0 95 18 118/76 91 Intake & Output 04/23 1600 06/ 0800 / 0000 Intake Total 1095 905 Output Total 450 Balance 645 905 Intake, IV 975 875 Intake, Oral 120 30 Number 0 Bowel Movements Output, Urine 450 Impression/Plan Impression/Plan Impression/Plan: Physical Exam General Appearance Alert, Oriented X3, Cooperative, No Acute Distress, Cachectic Skin No Rashes Skin Temp/Moisture Exam: Warm/Dry Sepsis Skin Exam (color): Normal for Ethnicity HEENT Atraumatic, PERRLA, EOMI Neck Supple, No JVD, No thryomegaly Lymphatic Cervical nl Cardiovascular Regular Rate, Normal S1, Normal S2, No Murmurs Lungs Bronchial breath sounds in left lower lung with reduced breath sounds in the left upper lobe, Right lung has few basilar crackles and wheeze with normal air entry Abdomen Normal Bowel Sounds, Soft, No Tenderness, No Hepatospenomegaly, No Masses Neurological Normal Speech, Strength at 5/5 X4 Ext, Normal Tone Extremities No Edema, Normal Pulses Vascular Normal Pulses, Pulses Symmetrical The patient is a 56-year-old male with a past medical history significant for 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 He has had hemoptysis in the past which has required intervention. He has been told that he was in remission, noting he was previously followed at [facility] (Dr. Castillo). The patient also has a history of alcohol abuse with cirrhosis and multiple admissions for alcohol withdrawal, COPD, and DVT status post IVC filter off anticoagulation. IMPRESSION Left UL pna with a lesion in the bronchus Pharyngeal abscess s/p drainage Wt loss COPD DVT s/p ivc filter Etoh abuse REC Rpt sputum culture Cont current rx IV abx for now with ceftaz and flagyl Follow cultures Nebs prn sputum for cytology WIll follow
[2017-04-23 14:45] VITALS: BP 98/82
[2017-04-23 22:19] VITALS: BP 102/65
[2017-04-24] VITALS (8 sets, daily range): BP systolic 108–112; BP diastolic 68–80
[2017-04-24 08:06] LABS: ABSOLUTE BASOPHIL COUNT 0 /CUMM (0.0-0.2); ABSOLUTE EOSINOPHIL COUNT 0.1 /CUMM (0.0-0.7); ABSOLUTE GRANULOCYTE CT 8.8 /CUMM (1.4-6.5); ABSOLUTE LYMPH COUNT 0.6 /CUMM (1.2-3.4); ABSOLUTE MONOCYTE COUNT 0.8 /CUMM (0.10-0.60); BASOPHIL % 0.2 % (0.0-2.0); EOSINOPHIL % 1.2 % (0-5); HEMATOCRIT 26.4 % (42-52); MEAN CORPUSCULAR HGB 32.1 PG (27.0-31.0); MEAN CORPUSCULAR HGB CONC 32.7 G/DL (33.0-37.0); MEAN CORPUSCULAR VOLUME 98.2 FL (80.0-94.0); MEAN PLATELET VOLUME 6.9 FL (7.4-10.4); PLATELET COUNT 247 /CUMM (130-400); RBC DISTRIBUTION WIDTH 14.7 % (11.5-14.5); RED BLOOD CELL CT 2.68 /CUMM (4.70-6.10); WHITE BLOOD CELL COUNT 10.3 /CUMM (4.8-10.8)
--- NOTE | 2017-04-24 08:35 | PN- Housestaff ---
ISRAEL GAMEZ,[facility] 04/24/17 0835: Subjective Follow-up For: -Shortness of breath and cough -Obstructive pneumoinia -Dysphagia/aspiration Complaints: COUGH Subjective: Patient seen and examined. Still has productive cough but it is much improved this morning. Coughing small quantities of light brown sputum. He has shortness of breath. He is tolerating nectar thickened fluids and mechanical soft diet. Reports chest discomfort after each cough. Also has occasional dizziness and lightheadedness. Denies headache, nausea, vomiting, abdominal pain, urinary symptoms. Review of Systems Constitutional: Denies: chills, fever, weakness. EENTM: Denies: blurred vision, nasal congestion. Cardiovascular: Denies: chest pain, edema, syncope. Respiratory: Reports: cough, short of breath, sputum production, wheezing. Gastrointestinal: Denies: abdominal pain, diarrhea, vomiting. Genitourinary: Denies: dysuria, nocturia. Objective Last 24 Hrs of Vital Signs/I&O Vital Signs Date Time Temp Pulse Resp B/P B/P Pulse O2 O2 Flow FiO2 Mean Ox Delivery Rate 04/24 0932 98 Nasal 2.0L Cannula 04/24 0630 98.2 96 20 108/70 100 Nasal Cannula 04/24 0000 Nasal 2.0L Cannula 04/23 2219 97.9 89 20 102/65 95 Nasal 2.0L Cannula 04/23 1825 92 Nasal 2.0L Cannula 04/23 1600 95 Nasal 2.0L Cannula 04/23 1445 98.0 91 20 98/82 93 06/04 1123 92 Nasal 2.0L Cannula Intake & Output 04/24 1600 /05 0800 06/ 0000 Intake Total Output Total 700 200 Balance -700 -200 Number 0 Bowel Movements Output, Urine 700 200 Physical Exam General Appearance: Alert, Oriented X3, Cooperative, No Acute Distress Skin: No Rashes Skin Temp/Moisture Exam: Warm/Dry Sepsis Skin Exam (color): Normal for Ethnicity HEENT: Atraumatic, PERRLA, EOMI, Mucous Membr. moist/pink Neck: Supple, No JVD, No thryomegaly, +2 Carotid Pulse wo Bruit Lymphatic: Cervical nl Cardiovascular: Regular Rate, Normal S1, Normal S2, No Murmurs Lungs: Dull to percussion in left upper lung region. Bilateral scattered crepitations and bronchial breath sounds Abdomen: Normal Bowel Sounds, Soft, No Tenderness, No Hepatospenomegaly, No Masses Neurological: Normal Speech, Normal Tone, Sensation Intact Extremities: No Edema, Clubbing of fingers Vascular: Normal Pulses, Pulses Symmetrical Current Medications: Current Medications Sig/Steven Start time Last Medication Dose Route Stop Time Status Admin Acetaminophen 650 MG Q6P PRN 04/20 1345 AC PO Albuterol Sulfate 3 ML BID 04/20 2200 AC 04/24 INH 0929 Azithromycin 500 MG Q24H 04/21 1000 DC 06 Sodium Chloride 250 ML IV 0952 Ceftazidime 2,000 MG IQ8 04/24 0800 CAN IV Ceftazidime 2,000 MG IQ8 04/23 1715 AC 04/24 Dextrose/Water 50 ML IV 0926 Ceftazidime 2,000 MG IQ8 04/23 1600 DC Dextrose/Water 50 ML IV 04/24 0001 Cyanocobalamin/ 1 BAG Q24H 04/21 1300 DC 04/23 Thiamine/Pyridoxine IV 1311 Dextrose/Sodium 1,000 ML Chloride Dextrose/Sodium 1,000 ML Q8H 04/21 2100 DC 04/24 Chloride IV 0429 Enoxaparin Sodium 40 MG DAILY 04/20 1326 AC 04/24 SC 0926 Folic Acid 1 MG DAILY 04/24 1041 AC PO Hydromorphone HCl 0.6 MG Q4P PRN 04/22 0830 AC 04/24 IV 0704 Levothyroxine Sodium 0.1 MG DAILY AC 04/20 1536 AC 04/24 PO 0603 Lorazepam 0 Q1P PRN 04/20 1400 AC IV Metronidazole 500 MG IQ8 04/21 1645 AC 04/24 N/A 1 UNIT IV 1019 Multivitamins 1 TAB DAILY 04/24 1041 AC PO Nicotine 21 MG DAILY 04/20 1615 AC 04/24 TOP 0926 Oxycodone HCl 5 MG Q6P PRN 04/20 1345 AC 04/24 PO 0603 Thiamine HCl 100 MG DAILY 04/24 1042 AC PO Last 24 Hrs of Lab/Mane Results Last 24 Hrs of Labs/Mics: Laboratory Tests 04/24/17 0645: Anion Gap 8, Estimated GFR > 60, BUN/Creatinine Ratio 12.0, CBC w Diff NO MAN DIFF REQ, RBC 2.68 L, MCV 98.2 H, MCH 32.1 H, RDW 14.7 H, MPV 6.9 L, Gran % 85.5 H, Lymphocytes % 5.7 L, Monocytes % 7.4, Eosinophils % 1.2, Basophils % 0.2, Absolute Granulocytes 8.8 H, Absolute Lymphocytes 0.6 L, Absolute Monocytes 0.8 H, Absolute Eosinophils 0.1, Absolute Basophils 0, PUBS MCHC 32.7 L Microbiology 04/24 932 LOWER RESP: Respiratory Culture - ORD 04/24 932 LOWER RESP: Gram Stain - ORD Assessment/Plan Assessment: Mr. 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 He presented with worsening shortness of breath and productive cough for 12 days along with weakness. In addition, he was malnourished and cachectic. Given, his past history of endobronchial squamous cell cancer, his current symptoms are concerning for pneumonia with possible bronchial obstruction from a recurrence of his cancer. He also has some symptoms of dysphagia and loss of appetite. He is being managed for pneumonia, dysphagia and bronchial obstruction from his cancer. Problem list 1. Sepsis from community acquired pneumonia 2. Concern for bronchial obstruction from endobronchial squamous cell lung cancer 3. Dysphagia 4. Malnutrition 5. Alcohol abuse Plan 1. Sepsis from obstructive pneumonia vs aspiration pneumonia * Sputum culture now growing pseudomonal sensitive to ceftazidime * Repeat sputum culture today * Follow up final blood and sputum cultures: BCs from 04/21/17 NTD. * Continue IV ceftazidime * Discontinue IV azithromycin 500 mg daily * Continue IV metronidazole * Infectious disease consultation for antibiotic guidance * Follow up with pulmonology regarding if patient will need a bronchoscopy this admission * Discontinue IV fluids (His oral intake is improved and his hyponatremia also improved) * Monitor vital signs closely * Monitor CBC for WBC * PO tylenol for fever * c/w current pain medications 2. Dysphagia with concern for bronchial obstruction from recurrence of endobronchial lung cancer * Pulmonary consult appreciated * Retrieve [facility] records for patient * Follow up with pulmonology regarding if patient will need a bronchoscopy this admission * CT Chest and CT neck with IV contrast shows obstructive bronchial lesion and tonsilar mass suspicious for cancer * Sputum cytology X 3 * ENT consult-Dr. Lyle was at bedside did an ENT scope during which she drained a hypopharyngeal abscess. She recommends continuing antibiotics including flagyl and outpatient pharyngeal biopsy after current infection is cleared. * Speech and swallow evaluation recommended mechanical ground nectar thick diet after Modified Barium Swallow. He is currently tolerating this well. * TRC evaluation 3. Malnutrition with hyponatremia * Hyponatremia is resolving. Likely related to chronic malnutrition and alcoholism * Discontinue IV fluids (His oral intake is improved and his hyponatremia also improved) Monitor electrolytes and Na Nutrition consult appreciated 4. Alcohol abuse * Stated that his last drink was 3 days prior to presentation * Monitor CIWA protocol IV ativan as per CIWA scores: has not required any IV Lorazepam so far. 5. DVT prophylaxis SC lovenox 40 Units daily 6. Code status Full code Problem List: 1. Pneumonia 2. Hyponatremia 3. Sepsis Pain Ratin Pain Location: Chest Pain Goal: Pain 4 or less Pain Plan: Tylenol PRN, Oxycodone PRN, Dilaudid PRN for mild, moderate and severe pain respectively. Tomorrow's Labs & Rationales: CBC for WBC DVT/Prophylaxis: pharmacological RYAN BATES 04/24/17 0931: Attending MD Review Statement Attending Statement Attending MD Statement: examined this patient, discuss w/resident/PA/DAIRY TECHNOLOGIST, agreed w/resident/PA/DAIRY TECHNOLOGIST, discussed with family, reviewed EMR data (avail), discussed with nursing, discussed with case mgmt, reviewed images, amended to note Attending Assessment/Plan: "56M PMH tracheal cancer s/p chemoradiaton, GERD, EtOH abuse admitted for progressive shortness of breath, dyspnea on exertion, cough with brown sputum, and 20 pound unintentional weight loss over the past month. Patient feels weak and appears malnourished. He reports difficulty swallowing thicker foods, no issues with liquids. His appetite is decreased. He continues to drink and smoke. Afebrile, borderline low BP, HR 120 on admission, saturating well. WBC 15.6, sodium 127, normal renal function" ASSESSMENT 1. GUY pneumonia 2. Sepsis resolved 3. Malnutrition 4. Unintentional weight loss 5. Dysphagia MBS recommend nectar thick liquid 6. Endobronchial mass with sqaumous cell carcinoma 2012 s/p chemoradiaiton. 7. Pseudomonas in sputum culture. 8. Hyponatremia on admission 9. alchol abuse with cirrhosis. Plan - cont current care - switched abx to Ceftaz, completed Azithromycin x3 days, on flagyl. Consider ID consult. - Sputum cultures s/o pseudomonas, repeat sputum cx. - Nutrition consulted and follow recommendations - Pulmonary on babetsy, plan for bronch as per pulm. f/u cytology. - Hyponatremia improving. - PRN Ativan per CIWA in case of eventual withdrawal symptoms - DVT PPx Overall poor prognosis.
[2017-04-24 09:13] LABS: GRANULOCYTE % 85.5 % (42.2-75.2)
--- NOTE | 2017-04-24 13:41 | Discharge Summary ---
See Addendum Visit Information Visit Dates Admission Date: 04/20/17 Discharge Date: 04/27/17 Hospital Course Course Attending Physician: RYAN BATES MD Primary Care Physician: MANUEL MARTINEZ MD Hospital Course: Mr. 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 His oncologist is Dr. Kwan Castillo at [facility]. He presented with worsening shortness of breath and productive cough for 12 days along with weakness. In addition, he was malnourished and cachectic and admitted to losing over 20 lbs in the past 12 days prior to admission and about 40 lbs over the past 6 months. In addition he also had some symptoms of dysphagia and loss of appetite had been going on for several months. Vital signs at presentation showed a temperature of 97.8F, pulse of 1 20 bpm, respiratory rate of 20/m, blood pressure 87/67 mmHg, and pulse oximetry of 98% on room air. Labs showed CBC with WBC of 15.6 with segmented neutrophils 86% and 7% bands, hemoglobin of 11.2, hematocrit of 33.6%, pericardial 401. Chemistries showed sodium of 127, potassium 4, creatinine of 0.8. Chest x-ray showed a wedge-shaped opacity in the left upper lobe suspicious for lobar pneumonia. Differential possibilities included bronchial obstruction and atelectasis. CT scan of his neck and chest with IV contrast which showed diffuse thickening of the thoracic trachea and bifurcation, progressive when compared to his 2013 exam along with an ulcerative lesion centered within the left palatine tonsil of the oropharynx, along with postobstructive dense consolidation and volume loss in the lingula and anterior segment of left upper lobe with suspicion of an internal evolving abscess. His right upper lobe also had an irregularly shaped nodular density concerning for a focus of endobronchial spread of infection versus a malignant mass. He was admitted and managed for sepsis from pneumonia, dysphagia and bronchial obstruction from his cancer. Blood and sputum cultures were obtained and he was started on IV ceftriaxone, and azithromycin which were internally changed to oral IV Ceftaz based on sensitivities. Problem list 1. Sepsis from community acquired pneumonia secondary to Pseudomonas 2. Concern for bronchial obstruction from recurrence of endobronchial squamous cell lung cancer 3. Dysphagia 4. Malnutrition 5. Alcohol abuse Plan 1. Sepsis from obstructive psuedomonas pneumonia vs post-obstructive pneumonia Sputum culture now growing pseudomonal sensitive to ceftazidime. BCs from 04/20/17 Coagulase negative staph (Contaminant) and repeat blood culture 04/21/17-No growth till date. Bronchoscopy records from [place] show that patient did not have an endobronchial mass in May 2016 when his last bronchoscopy was done, so the endobronchial mass seen on CT is likely new. Patient also has a history of massive hemoptysis that required embolization at [place] by Dr. Cerrato. Patient is to get repeat bronchoscopy which carries a high risk of bleeding hence this transfer to [facility] where facilities for embolization are available if needed. He might also need some stenting which can be also done at [place]. 2. Dysphagia with concern for bronchial obstruction from endobronchial lung cancer CT Chest and CT neck with IV contrast shows obstructive bronchial lesion and tonsilar mass suspicious for cancer. Sputum cytology X 3-rare squamous metaplastic cells are seen. He is staus post draining of a hypopharyngeal abscess by surgical product sales consultant and was started on IV flagyl. He will need outpatient pharyngeal biopsy if fullness persists. He is on mechanical soft foods and nectar thick liquids after a modified barium swallow evaluation and is tolerating it well. He was also reviewed by stock replenisher. 3. Malnutrition with hyponatremia His hyponatremia resolved with nutrition on IV normal saline for rehydration. Likely related to chronic malnutrition and alcoholism. Monitor electrolytes and nutritional intake. 4. Alcohol abuse His last drink was 3 days prior to presentation. Ativan discontinued since CIWA scores have remained 0 and he did not required any ativan since admission. 5. DVT prophylaxis SC enoxaparin 40mg daily He had an IVC filter placed in 2012 Patient will be transferred to the oncology service under Dr. Mcknight with consult to interventional storekeeper helper . Complications: none Allergies: Coded Allergies: NO KNOWN ALLERGIES (10/15/12) Significant Procedures: none Pertinent Lab Results: See hospital course Disposition Summary Disposition Principal Diagnosis: 1. Sepsis from Obstructructive Pseudomonas Pneumonia/Post Obstructive Pneumonia Additional Diagnosis: 2. Concern for bronchial obstruction from endobronchial squamous cell lung cancer 3. Dysphagia 4. Malnutrition 5. Alcohol abuse Discharge Disposition: other general hospital Discharge Instructions General Discharge Information Code Status: Full Code Patient's Diet: Regular diet-Mechanical Soft and [place] thick liquid Patient's Activity: Self limited activity Follow-Up Instructions/Appts: Patient is being transferred to [facility] for specialty care Medications at Discharge Discharge Medications: Start taking the following new medications: Ceftazidime (Ceftazidime) 2 GRAM VIAL 2,000 Milligram INTRAVEN IV EVERY 8 HOURS Days = 10 No Refills Levothyroxine Sodium (Synthroid) 100 MCG TABLET 0.1 Milligram ORAL DAILY BEFORE BREAKFAST Qty = 30 No Refills Folic Acid (Folic Acid) 1 MG TABLET 1 Milligram ORAL DAILY Qty = 30 No Refills Thiamine HCl (Vitamin B-1) 100 MG TABLET 100 Milligram ORAL DAILY Qty = 30 No Refills Metronidazole (Flagyl) 500 MG TABLET 1 Tablet ORAL TWICE DAILY Qty = 20 No Refills Copies To: JUAN GAMEZ,MANUEL Case
--- NOTE | 2017-04-24 16:37 | Cons- Infect Disease ---
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 On admission he was afebrile. Laboratory data revealed a white blood cell count of 16,000, with 86 segs and 7 bands, BUN/creatinine 17 and 0.8, sodium 127, alk phosphatase 250, alcohol level 16. Urinalysis rare RBCs/rare WBCs. Chest x-ray revealed a wedge-shaped opacity in the left upper lobe. CT of the chest revealed diffuse circumferential soft tissue thickening involving the trachea and the tracheal bifurcation extending along the right and left mainstem bronchi ; mild circumferential luminal narrowing of the left mainstem bronchus, with an abrupt cutoff of the left upper lobe bronchus with a large area of dense consolidation and volume loss involving the entire lingula and likely portions of the anterior segment of the left upper lobe, with central areas of consolidated lingular segment with a liquefactive component suspicious for developing abscesses; consolidation from the lingula appears to extend into the anterior inferior aspect of the left lower lobe; right upper lobe irregularly- shaped nodule. A CT of the neck revealed an ulcerative lesion within the left palatine tonsil of the oropharynx. He was begun on Ceftriaxone and Azithromycin. He was evaluated by ENT on April 21, with a fiberoptic laryngoscopy revealing a hypopharyngeal abscess in the left lateral hypopharyngeal wall, which was I&D, and Flagyl was added to the antibiotic regimen. On April 23 the sputum culture was reported positive for Pseudomonas, and his antibiotics were changed to Ceftazidime, with continuation of the Flagyl. He has remained afebrile since admission and his white blood cell count has normalized. He feels improved, with increased appetite, though still reports a cough, now with white/yellow sputum, left chest discomfort and mild shortness of breath, particularly with exertion. Allergies/Medications Allergies: Coded Allergies: NO KNOWN ALLERGIES (10/15/12) Home Med List: No Known Home Medications Past History Travel History Traveled to [place] past 21 day No Medical History Blood Transfusion Hx: Yes Neurological: NONE EENT: NONE Respiratory: emphysema Gastrointestinal: Hx GI bleed Hepatic: NONE Renal: NONE Musculoskeletal: NONE Psychiatric: alcohol dependence, history of nicotine dependence Endocrine: pancreatitis history of borderline/ low serum thyroxine Blood Disorders: DVT, IVC FILTER Cancer(s): tracheal squamous cell ca with an endobronchial lesion s/p chemo, RT and stenting History of MRSA: No History of VRE: No History of CDIFF: No Isolation History: Standard Surgical History Surgical History: non-contributory Family History Relations & Conditions If Any: Relation not specified for: FH: cancer of digestive organ FH: stroke Psychosocial History Where Do You Live? Home Who Do You Live With? 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 Review of Systems Review of Systems All Other Systems: Reviewed and Negative Exam & Diagnostic Data Last 24 Hrs of Vital Signs/I&O Vital Signs Date Time Temp Pulse Resp B/P B/P Pulse O2 O2 Flow FiO2 Mean Ox Delivery Rate 04/24 1428 98.0 84 20 112/80 95 Nasal 3.0L Cannula 04/24 0932 98 Nasal 2.0L Cannula 04/24 0630 98.2 96 20 108/70 100 Nasal Cannula 04/24 0000 Nasal 2.0L Cannula 04/23 2219 97.9 89 20 102/65 95 Nasal 2.0L Cannula 04/23 1825 92 Nasal 2.0L Cannula Intake & Output 04/24 1600 04/24 0800 04/24 0000 Intake Total Output Total 200 700 200 Balance -200 -700 -200 Number 0 Bowel Movements Output, Urine 200 700 200 Physical Exam Other Physical Findings: He is awake and alert in no acute distress. He is afebrile. Skin reveals scattered ecchymoses. HEENT exam is negative. Neck is supple with no adenopathy. Lungs bronchial breath sounds on the left. Heart regular rhythm with a 1/6 systolic ejection murmur. Abdomen is distended, nontender with positive bowel sounds. Back no CVA tenderness. Extremities no cyanosis or edema. Neuro is without focality. Last 24 Hours of Lab Results: Laboratory Tests 04/24 0645 Chemistry Sodium (137 - 145 mmol/L) 136 L Potassium (3.5 - 5.1 mmol/L) 3.7 Chloride (98 - 107 mmol/L) 103 Carbon Dioxide (22 - 30 mmol/L) 24 Anion Gap (5 - 16) 8 BUN (9 - 20 mg/dL) 6 L Creatinine (0.7 - 1.2 mg/dL) 0.5 L Estimated GFR (>60 ml/min) > 60 BUN/Creatinine Ratio (7 - 25 %) 12.0 Hematology CBC w Diff NO MAN DIFF REQ WBC (4.8 - 10.8 /CUMM) 10.3 RBC (4.70 - 6.10 /CUMM) 2.68 L Hgb (14.0 - 18.0 G/DL) 8.6 L Hct (42 - 52 %) 26.4 L MCV (80.0 - 94.0 FL) 98.2 H MCH (27.0 - 31.0 PG) 32.1 H RDW (11.5 - 14.5 %) 14.7 H Plt Count (130 - 400 /CUMM) 247 MPV (7.4 - 10.4 FL) 6.9 L Gran % (42.2 - 75.2 %) 85.5 H Lymphocytes % (20.5 - 51.1 %) 5.7 L Monocytes % (1.7 - 9.3 %) 7.4 Eosinophils % (0 - 5 %) 1.2 Basophils % (0.0 - 2.0 %) 0.2 Absolute Granulocytes (1.4 - 6.5 /CUMM) 8.8 H Absolute Lymphocytes (1.2 - 3.4 /CUMM) 0.6 L Absolute Monocytes (0.10 - 0.60 /CUMM) 0.8 H Absolute Eosinophils (0.0 - 0.7 /CUMM) 0.1 Absolute Basophils (0.0 - 0.2 /CUMM) 0 PUBS MCHC (33.0 - 37.0 G/DL) 32.7 L Last 24 Hours of Mane Results: Blood cultures April 20 one bottle positive for 2 strains of coag-negative Staph Sputum culture April 20 positive for mixed silas with scant growth of Pseudomonas sensitive to all antibiotics tested Urine culture April 20 negative Blood cultures 2 April 21 negative Diagnostic Data Recent Imaging Findings: Chest x-ray April 20 revealed a wedge-shaped opacity in the left upper lobe. CT of the chest April 20 revealed diffuse circumferential soft tissue thickening involving the trachea and the tracheal bifurcation extending along the right and left mainstem bronchi; mild circumferential luminal narrowing of the left mainstem bronchus, with an abrupt cutoff of the left upper lobe bronchus with a large area of dense consolidation and volume loss involving the entire lingula and likely portions of the anterior segment of the left upper lobe, with central areas of consolidated lingular segment with a liquefactive component suspicious for developing abscesses; consolidation from the lingula appears to extend into the anterior inferior aspect of the left lower lobe; right upper lobe irregularly-shaped nodule. CT of the neck April 20 revealed an ulcerative lesion within the left palatine tonsil of the oropharynx. 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 diagnosed over 6 years prior to admission, treated with stenting, chemotherapy and radiation, admitted on April 20 with a two-week history of a cough, shortness of breath and chest discomfort and more chronic complaints of anorexia, dysphagia and weight loss, found to be afebrile with a leukocytosis and with a CT of the chest revealing a complete cutoff of the left mainstem bronchus, suspicious for an endobronchial mass, with associated postobstructive consolidation in the lingula and portions of the left upper lobe and left lower lobe with possible evolving abscesses and with Pseudomonas isolated from the sputum culture. His presentation is worrisome for a malignant process, which would presumably represent metastasis from his primary lesion, complicated by a postobstructive pneumonia or a lung abscess, though theoretically a lung abscess alone could also explain his symptoms. He may require a prolonged course of antibiotics for a presumed lung abscess, with follow-up CT scans and further evaluation, including bronchoscopy, based on the clinical and radiographic follow-up. The lesion seen on the CT of the neck within the left palatine tonsil likely represents the hypopharyngeal abscess that was drained by ENT. The positive blood cultures for coag-negative Staph presumably represent contaminants and do not require treatment. Suggestion: 1. Obtain records from his hospitalization for hemoptysis at [facility] in May 2016 2. Follow-up sputa for cytology 3. Await Pulmonary follow-up for possible bronchoscopy based on above 4. Continue Ceftazidime and Flagyl, but can consider change to an oral regimen, such as Ciprofloxacin and Flagyl, if he remains stable Consult Acknowledgment - Thank you for your consult request.
[2017-04-25] VITALS: BP 110/68
[2017-04-25 02:00] VITALS: BP 100/66
[2017-04-25 02:17] VITALS: BP 100/66
[2017-04-25 06:00] VITALS: BP 112/70
--- NOTE | 2017-04-25 07:37 | PN- Housestaff ---
ISRAEL GAMEZ,[facility] 04/25/17 0737: Subjective Follow-up For: -Shortness of breath and cough -Post-obstructive pneumoinia -Dysphagia/aspiration Complaints: Cough, Sputum production Subjective: Patient still has productive cough but it is much improved this morning. He is coughing small quantities of light brown sputum. He has shortness of breath. He is tolerating nectar thickened fluids and mechanical soft diet. Reports chest discomfort after each cough. Also has occasional dizziness and lightheadedness. Denies headache, nausea, vomiting, abdominal pain, urinary symptoms. Still waiting for records from [place] regarding lung mass and therapy. Review of Systems Constitutional: Reports: weakness. Denies: chills, fever, malaise. Cardiovascular: Reports: chest pain. Denies: palpitations, peripheral edema, syncope. Respiratory: Reports: cough, short of breath, sputum production. Gastrointestinal: Denies: abdominal pain, constipation, diarrhea. Genitourinary: Denies: dysuria. Objective Last 24 Hrs of Vital Signs/I&O Vital Signs Date Time Temp Pulse Resp B/P B/P Pulse O2 O2 Flow FiO2 Mean Ox Delivery Rate 04/25 0911 98 Nasal 2.0L Cannula 04/25 0600 97.9 78 16 112/70 98 Nasal 2.0L Cannula 04/25 0217 98.0 84 16 100/66 96 Nasal 2.0L Cannula 04/25 0200 98.0 84 16 100/66 06/06 0000 Nasal 2.0L Cannula 04/25 0000 98.1 91 18 110/68 06/05 2210 98.1 91 18 110/68 92 Nasal 2.0L Cannula 04/24 2200 98.1 91 18 110/68 /05 2050 92 Nasal 2.0L Cannula / 2000 97.8 70 18 108/70 06/05 1952 97.8 85 18 108/70 94 06/05 1800 98.0 84 20 112/80 06/05 1600 98.0 80 20 112/80 06/05 1428 98.0 84 20 112/80 95 Nasal 3.0L Cannula Intake & Output /06 1600 06/06 0800 06/ 0000 Intake Total 300 450 Output Total 600 350 Balance -300 100 Intake, IV 100 Intake, Oral 200 450 Output, Urine 600 350 Physical Exam General Appearance: Alert, Oriented X3, Cooperative, No Acute Distress Skin: No Rashes Skin Temp/Moisture Exam: Warm/Dry Sepsis Skin Exam (color): Normal for Ethnicity HEENT: Atraumatic, PERRLA, EOMI, Mucous Membr. moist/pink Neck: Supple, No JVD, No thryomegaly, +2 Carotid Pulse wo Bruit Lymphatic: Cervical nl Cardiovascular: Regular Rate, Normal S1, Normal S2 Lungs: Coarse crepitations in left upper lobe and reduced air entry in left lower lobe. Normal air entry in right lung Abdomen: Normal Bowel Sounds, Soft, No Tenderness, No Hepatospenomegaly, No Masses Neurological: Normal Speech, Normal Tone Extremities: No Edema, Normal Pulses Vascular: Normal Pulses, Pulses Symmetrical Current Medications: Current Medications Sig/Steven Start time Last Medication Dose Route Stop Time Status Admin Acetaminophen 650 MG Q6P PRN 04/20 1345 PO Albuterol Sulfate 3 ML BID 04/20 2200 AC 04/25 INH 0911 Ceftazidime 2,000 MG IQ8 04/24 1600 AC 04/25 IV 0843 Ceftazidime 2,000 MG IQ8 04/23 1715 DC 04/24 Dextrose/Water 50 ML IV 0926 Cyanocobalamin/ 1 BAG Q24H 04/21 1300 DC 04/23 Thiamine/Pyridoxine IV 1311 Dextrose/Sodium 1,000 ML Chloride Dextrose/Sodium 1,000 ML Q8H 04/21 2100 DC 04/24 Chloride IV 0429 Enoxaparin Sodium 40 MG DAILY 04/20 1326 04/25 SC 0844 Folic Acid 1 MG DAILY 04/24 1041 AC 04/25 PO 0844 Hydromorphone HCl 0.6 MG Q4P PRN 04/22 0830 AC 04/25 IV 0845 Levothyroxine Sodium 0.1 MG DAILY AC 04/20 1536 AC 04/25 PO 0626 Lorazepam 0 Q1P PRN 04/20 1400 AC IV Metronidazole 500 MG IQ8 04/21 1645 AC 04/25 N/A 1 UNIT IV 0843 Multivitamins 1 TAB DAILY 04/24 1041 AC 04/25 PO 0844 Nicotine 21 MG DAILY 04/20 1615 04/25 TOP 0844 Oxycodone HCl 5 MG Q6P PRN 04/20 1345 AC 04/25 PO 0707 Thiamine HCl 100 MG DAILY 04/24 1042 AC 04/25 PO 0844 Last 24 Hrs of Lab/Mane Results Last 24 Hrs of Labs/Mics: Laboratory Tests 04/25/17 0720: CBC w Diff Pending, WBC Pending, RBC Pending, Hgb Pending, Hct Pending, MCV Pending, MCH Pending, RDW Pending, Plt Count Pending, MPV Pending, Gran % Pending, Lymphocytes % Pending, Monocytes % Pending, Eosinophils % Pending, Basophils % Pending, Absolute Granulocytes Pending, Absolute Lymphocytes Pending , Absolute Monocytes Pending, Absolute Eosinophils Pending, Absolute Basophils Pending, PUBS MCHC Pending Assessment/Plan Assessment: Mr. 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 He presented with worsening shortness of breath and productive cough for 12 days along with weakness. In addition, he was malnourished and cachectic. Given, his past history of endobronchial squamous cell cancer, his current symptoms are concerning for pneumonia with possible bronchial obstruction from a recurrence of his cancer. He also has some symptoms of dysphagia and loss of appetite. He is being managed for pneumonia, dysphagia and bronchial obstruction from his cancer. Problem list 1. Sepsis from community acquired pneumonia vs post-obstructive pneumonia 2. Concern for bronchial obstruction from endobronchial squamous cell lung cancer 3. Dysphagia 4. Malnutrition 5. Alcohol abuse Plan 1. Sepsis from obstructive pneumonia vs post-obstructive pneumonia * Sputum culture now growing pseudomonal sensitive to ceftazidime * Sputum culture not yet sent-Please collect today * Follow up final blood and sputum cultures: BCs from 04/20/17 Coagulase negative staph (Contaminant) Blood culture 04/21/17-No growth till date. * Continue IV ceftazidime 1g Q 8 * Continue IV metronidazole 500mg Q8 hrs * Infectious disease consultation for antibiotic guidance * Follow up with pulmonology regarding if patient will need a bronchoscopy this admission * Monitor vital signs closely * Monitor CBC for WBC * PO tylenol for fever * c/w current pain medications 2. Dysphagia with concern for bronchial obstruction from recurrence of endobronchial lung cancer * Pulmonary consult appreciated * Retrieve [facility] records for patient-Second request sent * Follow up with pulmonology regarding if patient will need a bronchoscopy this admission * CT Chest and CT neck with IV contrast shows obstructive bronchial lesion and tonsilar mass suspicious for cancer * Sputum cytology X 3-Result pending * ENT consult-Dr. Lyle was at bedside did an ENT scope during which she drained a hypopharyngeal abscess. She recommends continuing antibiotics including flagyl and outpatient pharyngeal biopsy after current infection is cleared. * Speech and swallow evaluation recommended mechanical ground nectar thick diet after Modified Barium Swallow. He is currently tolerating this well. * TRC evaluation 3. Malnutrition with hyponatremia-resolved * Hyponatremia is resolving. Likely related to chronic malnutrition and alcoholism * Monitor electrolytes and Na Nutrition consult appreciated 4. Alcohol abuse * Stated that his last drink was 3 days prior to presentation * IV ativan as per CIWA scores: has not required any IV Lorazepam so far. * Discontinue CIWA protocol 5. DVT prophylaxis SC lovenox 40 Units daily 6. Code status Full code Problem List: 1. Pneumonia 2. Obstructive pneumonia 3. Sepsis 4. Hyponatremia Pain Ratin Pain Location: Chest Pain Goal: Pain 4 or less Pain Plan: Oxycodone PRN, Dilaudid PRN Tomorrow's Labs & Rationales: None RYAN BATES 04/25/17 0915: Attending MD Review Statement Attending Statement Attending MD Statement: examined this patient, discuss w/resident/PA/[employer] CANS BACK TENDER, agreed w/resident/PA/[employer] C[employer] BACK TENDER, discussed with family, reviewed EMR data (avail), discussed with nursing, discussed with case mgmt, reviewed images, amended to note Attending Assessment/Plan: ASSESSMENT 1. GUY pneumonia 2. Sepsis resolved 3. Malnutrition 4. Unintentional weight loss 5. Dysphagia MBS recommend nectar thick liquid 6. Endobronchial mass with sqaumous cell carcinoma 2012 s/p chemoradiaiton. 7. Pseudomonas in sputum culture. 8. Hyponatremia on admission 9. alchol abuse with cirrhosis. Plan - cont current care - switched abx to Ceftaz, completed Azithromycin x3 days, on flagyl. appreicate ID consult. - Sputum cultures s/o pseudomonas, repeat sputum cx. - Nutrition consulted and follow recommendations - Pulmonary on babetsy, plan for bronch as per pulm. f/u cytology. - Hyponatremia improving. - PRN Ativan per CIWA in case of eventual withdrawal symptoms - DVT PPx - obtain medical records. already sent request once, will resend request. - d/c planning to rehab. Overall poor prognosis.
[2017-04-25 08:45] LABS: ABSOLUTE BASOPHIL COUNT 0 /CUMM (0.0-0.2); ABSOLUTE EOSINOPHIL COUNT 0.2 /CUMM (0.0-0.7); ABSOLUTE GRANULOCYTE CT 8.4 /CUMM (1.4-6.5); ABSOLUTE LYMPH COUNT 0.6 /CUMM (1.2-3.4); ABSOLUTE MONOCYTE COUNT 0.7 /CUMM (0.10-0.60); BASOPHIL % 0.1 % (0.0-2.0); EOSINOPHIL % 2.1 % (0-5); GRANULOCYTE % 84.6 % (42.2-75.2); HEMATOCRIT 26.8 % (42-52); MEAN CORPUSCULAR HGB 31.9 PG (27.0-31.0); MEAN CORPUSCULAR HGB CONC 32.6 G/DL (33.0-37.0); MEAN CORPUSCULAR VOLUME 97.7 FL (80.0-94.0); MEAN PLATELET VOLUME 6.9 FL (7.4-10.4); PLATELET COUNT 266 /CUMM (130-400); RBC DISTRIBUTION WIDTH 14.9 % (11.5-14.5); RED BLOOD CELL CT 2.74 /CUMM (4.70-6.10); WHITE BLOOD CELL COUNT 9.9 /CUMM (4.8-10.8)
--- NOTE | 2017-04-25 11:56 | PN- Infect Dx ---
Subjective Subjective: Afebrile. He feels overall improved. He continues to have a productive cough, mostly whitish/yellow sputum, and left sided chest pain. Objective Last 24 Hrs of Vital Signs/I&O Vital Signs Date Time Temp Pulse Resp B/P B/P Pulse O2 O2 Flow FiO2 Mean Ox Delivery Rate 04/25 0911 98 Nasal 2.0L Cannula 04/25 08 98 Nasal 2.0L Cannula 04/25 06 97.9 78 16 112/70 98 Nasal 2.0L Cannula 04/25 0217 98.0 84 16 100/66 96 Nasal 2.0L Cannula 04/25 0200 98.0 84 16 100/66 04/25 0000 Nasal 2.0L Cannula 04/25 0000 98.1 91 18 110/68 /05 2210 98.1 91 18 110/68 92 Nasal 2.0L Cannula 04/24 2200 98.1 91 18 110/68 04/24 2050 92 Nasal 2.0L Cannula 04/24 2000 97.8 70 18 108/70 /05 1952 97.8 85 18 108/70 94 /05 1800 98.0 84 20 112/80 06/05 1600 98.0 80 20 112/80 06/05 1428 98.0 84 20 112/80 95 Nasal 3.0L Cannula Intake & Output 04/25 1600 06 0800 04/25 0000 Intake Total 300 450 Output Total 600 350 Balance -300 100 Intake, IV 100 Intake, Oral 200 450 Output, Urine 600 350 Physical Exam Other Physical Findings: He appears comfortable in no acute distress Lungs bronchial breath sounds in the left upper lobe Heart regular rhythm with no murmur Results Last 24 Hours of Lab Results: Laboratory Tests 04/25 07 Hematology CBC w Diff NO MAN DIFF REQ WBC (4.8 - 10.8 /CUMM) 9.9 RBC (4.70 - 6.10 /CUMM) 2.74 L Hgb (14.0 - 18.0 G/DL) 8.8 L Hct (42 - 52 %) 26.8 L MCV (80.0 - 94.0 FL) 97.7 H MCH (27.0 - 31.0 PG) 31.9 H RDW (11.5 - 14.5 %) 14.9 H Plt Count (130 - 400 /CUMM) 266 MPV (7.4 - 10.4 FL) 6.9 L Gran % (42.2 - 75.2 %) 84.6 H Lymphocytes % (20.5 - 51.1 %) 6.4 L Monocytes % (1.7 - 9.3 %) 6.8 Eosinophils % (0 - 5 %) 2.1 Basophils % (0.0 - 2.0 %) 0.1 Absolute Granulocytes (1.4 - 6.5 /CUMM) 8.4 H Absolute Lymphocytes (1.2 - 3.4 /CUMM) 0.6 L Absolute Monocytes (0.10 - 0.60 /CUMM) 0.7 H Absolute Eosinophils (0.0 - 0.7 /CUMM) 0.2 Absolute Basophils (0.0 - 0.2 /CUMM) 0 PUBS MCHC (33.0 - 37.0 G/DL) 32.6 L Last 24 Hours of Mane Results: No recent cultures Assessment/Plan Impression: Stable on Ceftazidime and Flagyl Day 2 of treatment for presumed Pseudomonas pneumonia/possible lung abscesses with temperatures remaining normal and white blood cell count now normal. His CT scan did suggest the possibility of an endobronchial mass with a postobstructive process, and he will likely require bronchoscopy if his sputa for cytology are negative. He underwent I&D of a hypopharyngeal abscess 4 days ago, which is of unclear relevance to his current pulmonary infection. Suggestion: 1. Await records from [place] re. his hospitalization there for hemoptysis in May 2016 2. Follow-up sputa for cytology 3. Await Pulmonary follow-up for possible bronchoscopy based on above 4. Continue Ceftazidime and Flagyl, but can consider change to an oral regimen, such as Ciprofloxacin and Flagyl, if he remains stable
[2017-04-25 14:06] VITALS: BP 110/68
[2017-04-25 22:30] VITALS: BP 124/60
[2017-04-26 06:05] VITALS: BP 118/62
--- NOTE | 2017-04-26 07:52 | PN- Housestaff ---
LACHO GAMEZ,SOLANGE 04/26/17 0752: Subjective Follow-up For: -Shortness of breath and cough -Post-obstructive pneumoinia -Dysphagia/aspiration Complaints: pain scale (0-10) (6) Subjective: Complains of pain in his chest wall due to coughing since pain is well controlled on current pain medications once he takes them. He would also like to be placed on a bowel regimen. Review of Systems Constitutional: Reports: no symptoms. Respiratory: Reports: cough, sputum production, wheezing. Objective Last 24 Hrs of Vital Signs/I&O Vital Signs Date Time Temp Pulse Resp B/P B/P Pulse O2 O2 Flow FiO2 Mean Ox Delivery Rate 04/26 0852 92 Nasal 2.0L Cannula 04/26 0800 95 Nasal 2.0L Cannula 04/26 0605 98.3 85 16 118/62 95 Nasal 2.0L Cannula 04/26 0000 Nasal 2.0L Cannula 04/25 2230 98.0 87 19 124/60 92 Nasal Cannula 04/25 1603 96 Nasal 2.0L Cannula 04/25 1600 98 Nasal 2.0L Cannula 04/25 1410 Nasal 2.0L Cannula 04/25 1406 98.3 91 18 110/68 94 Intake & Output 04/26 1600 04/26 0800 04/26 0000 Intake Total 510 190 Output Total 400 Balance 110 190 Intake, IV 150 160 Intake, Oral 360 30 Output, Urine 400 Physical Exam General Appearance: Alert, Oriented X3, Cooperative Cardiovascular: Regular Rate, Normal S1, Normal S2 Lungs: mild scattered wheezing, decreased AE throughout Abdomen: Normal Bowel Sounds, Soft, No Tenderness Extremities: No Edema Current Medications: Current Medications Sig/Steven Start time Last Medication Dose Route Stop Time Status Admin Acetaminophen 650 MG Q6P PRN 04/20 1345 AC PO Albuterol Sulfate 3 ML BID 04/20 2200 AC 04/26 INH 0849 Ceftazidime 2,000 MG IQ8 04/24 1600 AC 04/26 IV 0915 Enoxaparin Sodium 40 MG DAILY 04/20 1326 04/26 SC 0916 Folic Acid 1 MG DAILY 04/24 1041 AC 04/26 PO 0917 Hydromorphone HCl 0.6 MG Q4P PRN 04/22 0830 AC 04/26 IV 1457 Levothyroxine Sodium 0.1 MG DAILY AC 04/20 1536 AC 04/26 PO 0620 Lorazepam 0 Q1P PRN 04/20 1400 AC IV Metronidazole 500 MG IQ8 04/21 1645 AC 04/26 N/A 1 UNIT IV 0916 Multivitamins 1 TAB DAILY 04/24 1041 AC 04/26 PO 0917 Nicotine 21 MG DAILY 04/20 1615 AC 04/26 TOP 0916 Oxycodone HCl 5 MG Q6P PRN 04/20 1345 AC 04/26 PO 0917 Patient Medication 1 ED .STK-MED ONE 04/26 1347 TX Teaching ED 04/26 1348 Polyethylene Glycol 17 GM DAILY 04/26 1358 AC 04/26 PO 1457 Senna/Docusate Sodium 2 TAB DAILY 04/26 1358 AC 04/26 PO 1456 Thiamine HCl 100 MG DAILY 04/24 1042 AC 04/26 PO 0917 Last 24 Hrs of Lab/Mane Results Last 24 Hrs of Labs/Mics: Microbiology 04/25 1735 LOWER RESP: Respiratory Culture - CAN Cancelled: NUMBER OF SQUAMOUS CELLS INDICATES POOR QUALITY SPECIMEN 04/25 1735 LOWER RESP: Gram Stain - CAN Cancelled: NUMBER OF SQUAMOUS CELLS INDICATES POOR QUALITY SPECIMEN Lines/Diet/Fluids Lines: peripheral lines Assessment/Plan Assessment: Mr. 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 He presented with worsening shortness of breath and productive cough for 12 days along with weakness. In addition, he was malnourished and cachectic. Given, his past history of endobronchial squamous cell cancer, his current symptoms are concerning for pneumonia with possible bronchial obstruction from a recurrence of his cancer. He also has some symptoms of dysphagia and loss of appetite. He is being managed for pneumonia, dysphagia and bronchial obstruction from his cancer. Problem list 1. Sepsis from community acquired pneumonia vs post-obstructive pneumonia 2. Concern for bronchial obstruction from endobronchial squamous cell lung cancer 3. Dysphagia 4. Malnutrition 5. Alcohol abuse Plan 1. Sepsis from obstructive pneumonia vs post-obstructive pneumonia * Sputum culture now growing pseudomonal sensitive to ceftazidime * Sputum culture not yet sent-Please collect today * Follow up final blood and sputum cultures: BCs from 04/20/17 Coagulase negative staph (Contaminant) Blood culture 04/21/17-No growth till date. * Continue IV ceftazidime 1g Q 8 * Continue IV metronidazole 500mg Q8 hrs * Infectious disease consultation for antibiotic guidance * Bronchoscopy records from [place] show that patient did not have an endobronchial mass in May 2016, so the endobronchial mass on CT is likely new. I spoke with Dr. Eagle today and he says Dr. Schneider who is his primary process development manager will see the patient tomorrow and then will make a determination on if the patient will be transferred to [place] to get a repeat bronchoscopy as he might also need some stenting which is not usually done here. * Monitor vital signs closely * Monitor CBC for WBC * PO tylenol for fever * c/w current pain medications 2. Dysphagia with concern for bronchial obstruction from recurrence of endobronchial lung cancer * Pulmonary consult appreciated/[facility] records recieved and in chart * CT Chest and CT neck with IV contrast shows obstructive bronchial lesion and tonsilar mass suspicious for cancer * Sputum cytology X 3-rare squamous metaplastic cells are seen * S/P draining of a hypopharyngeal abscess by advanced manufacturing consultant-Dr. Lyle at bedside. She recommends continuing antibiotics including flagyl and outpatient pharyngeal biopsy after current infection is cleared. * Speech and swallow evaluation recommend mechanical ground nectar thick diet after Modified Barium Swallow. He is currently tolerating this well. * Continue TRC 3. Malnutrition with hyponatremia-resolved * Hyponatremia is stable. Likely related to chronic malnutrition and alcoholism * Monitor electrolytes and Na Nutrition consult appreciated 4. Alcohol abuse * Stated that his last drink was 3 days prior to presentation * Ativan discontinued CIWA scores have remained 0 and pt has not required any IV Lorazepam so far. 5. DVT prophylaxis SC enoxaparin 40mg daily Had IVC filter placed in 2012 6. Code status Full code Problem List: 1. Obstructive pneumonia 2. Sepsis 3. Hyponatremia 4. Dysphagia Pain Ratin Pain Location: chest wall Pain Goal: Pain 4 or less Pain Plan: Continue current regimen Tomorrow's Labs & Rationales: none-Stable JANARYAN 04/26/17 0915: Attending MD Review Statement Attending Statement Attending MD Statement: examined this patient, discuss w/resident/PA/SAVINGS TELLER, agreed w/resident/PA/SAVINGS TELLER, discussed with family, reviewed EMR data (avail), discussed with nursing, discussed with case mgmt, reviewed images, amended to note Attending Assessment/Plan: ASSESSMENT 1. GUY pneumonia 2. Sepsis resolved 3. Malnutrition 4. Unintentional weight loss 5. Dysphagia MBS recommend nectar thick liquid 6. Endobronchial mass with sqaumous cell carcinoma 2012 s/p chemoradiaiton. 7. Pseudomonas in sputum culture. 8. Hyponatremia on admission 9. alchol abuse with cirrhosis. Plan - cont current care - switched abx to Ceftaz, completed Azithromycin x3 days, on flagyl. appreicate ID consult. - Sputum cultures s/o pseudomonas. - Nutrition consulted and follow recommendations - Pulmonary on rajat, plan for bronch as per pulm. f/u cytology. - Hyponatremia improving. - PRN Ativan per CIWA in case of eventual withdrawal symptoms - nectar thick liquid diet - DVT PPx - f/u medical records - d/c planning to rehab. Overall poor prognosis.
--- NOTE | 2017-04-26 08:12 | PN- Pulmonary ---
Subjective HPI/Critical Care Issues: pt seen and examined awaiting [facility] records afebrile hemodynamically stable 95% on 2LNC Objective Current Medications: Current Medications Sig/Steven Start time Last Medication Dose Route Stop Time Status Admin Acetaminophen 650 MG Q6P PRN 04/20 1345 PO Albuterol Sulfate 3 ML BID 04/20 2200 04/25 INH 1554 Ceftazidime 2,000 MG IQ8 04/24 1600 AC 04/26 IV 0032 Enoxaparin Sodium 40 MG DAILY 04/20 1326 04/25 SC 0844 Folic Acid 1 MG DAILY 04/24 1041 04/25 PO 0844 Hydromorphone HCl 0.6 MG Q4P PRN 04/22 0830 AC 04/26 IV 0622 Levothyroxine Sodium 0.1 MG DAILY AC 04/20 1536 04/26 PO 0620 Lorazepam 0 Q1P PRN 04/20 1400 AC IV Metronidazole 500 MG IQ8 04/21 1645 AC 04/26 N/A 1 UNIT IV 0032 Multivitamins 1 TAB DAILY 04/24 1041 04/25 PO 0844 Nicotine 21 MG DAILY 04/20 1615 04/25 TOP 0844 Oxycodone HCl 5 MG Q6P PRN 04/20 1345 AC 04/26 PO 0304 Thiamine HCl 100 MG DAILY 04/24 1042 04/25 PO 0844 Vital Signs & I&O Last 24 Hrs of Vitals and I&O: Vital Signs Date Time Temp Pulse Resp B/P B/P Pulse O2 O2 Flow FiO2 Mean Ox Delivery Rate 04/26 0605 98.3 85 16 118/62 95 Nasal 2.0L Cannula 04/26 0000 Nasal 2.0L Cannula 04/25 2230 98.0 87 19 124/60 92 Nasal Cannula 04/25 1603 96 Nasal 2.0L Cannula 04/25 1600 98 Nasal 2.0L Cannula 04/25 1410 Nasal 2.0L Cannula 04/25 1406 98.3 91 18 110/68 94 04/25 0911 98 Nasal 2.0L Cannula Intake & Output 04/26 1600 04/26 0800 04/26 0000 Intake Total 510 190 Output Total 400 Balance 110 190 Intake, IV 150 160 Intake, Oral 360 30 Output, Urine 400 Exam Other Physical Findings: gen awake and alert heent ncat cvs s1, s2 lungs rare rhonchi abd soft, bs+ ext without edema Impression/Plan Impression/Plan Impression/Plan: Impression 56 year old man * pseudomonas pneumonia, ?lung abscess, hx of sq cell lung ca * hypopharyngeal abscess. Plan -repeat CXR PA/Lateral today -f/u records from [facility] -f/u all pathology and cytology -sputum is suggestive of squamous metaplastic cells -when Dr. Schneider returns, will discuss bronchoscopy diagnostic, vs consideration for endobronchial stenting which would require the procedure to be performed at [facility] DVT prophylaxis at all times
[2017-04-26 14:41] VITALS: BP 114/64
--- NOTE | 2017-04-26 16:05 | NUR ---
SHIFT NOTE: UNEVENTFUL SHIFT. PATIENT REMAINED A/OX3 ON 2LO2. PAIN MANAGED WITH DILAUDID (REFER TO EMAR). OTHERWISE, PATIENT TOLERATING MECHANICAL/SOFT DIET WELL. NO SOB NOTED. DR. NOVOA SAW PATIENT TODAY. PATIENT REMAIN COMFORTABLE. OFFERS NO COMPLAINTS AT THIS TIME. REPORT GIVEN TO KADEN/TERESA.
[2017-04-26 22:36] VITALS: BP 116/70
[2017-04-27 06:31] VITALS: BP 102/60
--- NOTE | 2017-04-27 07:57 | PN- Housestaff ---
LACHO GAMEZ,SOLANGE 04/27/17 0757: Subjective Follow-up For: -Shortness of breath and cough -Post-obstructive pneumoinia -Dysphagia/aspiration Complaints: no complaints Review of Systems Constitutional: Reports: no symptoms. Objective Last 24 Hrs of Vital Signs/I&O Vital Signs Date Time Temp Pulse Resp B/P B/P Pulse O2 O2 Flow FiO2 Mean Ox Delivery Rate 04/27 1600 96 Nasal 2.0L Cannula 04/27 1500 98.7 68 20 120/70 96 / 0835 91 Nasal 1.5L Cannula 04/27 0800 94 Nasal 2.0L Cannula 04/27 0631 98.6 80 20 102/60 93 Nasal 2.0L Cannula 04/27 0000 93 Nasal 2.0L Cannula 04/26 2236 97.8 88 20 116/70 93 Nasal Cannula 04/26 1905 93 Nasal 1.5L Cannula Intake & Output 04/27 1600 08 0800 06/08 0000 Intake Total 1400 660 250 Output Total 670 400 Balance 730 260 250 Intake, IV 180 200 Intake, Oral 1400 480 50 Output, Urine 670 400 Physical Exam General Appearance: Alert, Oriented X3, Cooperative, No Acute Distress HEENT: PERRLA, EOMI, Mucous Membr. moist/pink Cardiovascular: Regular Rate, Normal S1, Normal S2 Lungs: Clear to Auscultation, decreased AE bilaterally Abdomen: Normal Bowel Sounds, Soft, No Tenderness Extremities: No Edema, Normal Pulses Current Medications: Current Medications Sig/Steven Start time Last Medication Dose Route Stop Time Status Admin Acetaminophen 650 MG Q6P PRN 04/20 1345 AC PO Albuterol Sulfate 3 ML BID 04/20 2200 AC 04/27 INH 0826 Ceftazidime 2,000 MG IQ8 04/24 1600 AC 04/27 IV 1624 Enoxaparin Sodium 40 MG DAILY 04/20 1326 AC 04/27 SC 0907 Folic Acid 1 MG DAILY 04/24 1041 AC 04/27 PO 0906 Hydromorphone HCl 0.6 MG Q4P PRN 04/22 0830 AC 04/27 IV 1618 Levothyroxine Sodium 0.1 MG DAILY AC 04/20 1536 AC 04/27 PO 0458 Metronidazole 500 MG IQ8 04/21 1645 AC 04/27 N/A 1 UNIT IV 1624 Multivitamins 1 TAB DAILY 04/24 1041 AC 04/27 PO 0907 Nicotine 21 MG DAILY 04/20 1615 AC 04/27 TOP 0907 Oxycodone HCl 5 MG Q6P PRN 04/20 1345 AC 04/27 PO 1344 Polyethylene Glycol 17 GM DAILY 04/26 1358 AC 04/27 PO 0907 Senna/Docusate Sodium 2 TAB DAILY 04/26 1358 AC 04/27 PO 0907 Thiamine HCl 100 MG DAILY 04/24 1042 AC 04/27 PO 0906 Last 24 Hrs of Lab/Mane Results Last 24 Hrs of Labs/Mics: none Lines/Diet/Fluids Lines: peripheral lines Assessment/Plan Assessment: Mr. 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 He presented with worsening shortness of breath and productive cough for 12 days along with weakness. In addition, he was malnourished and cachectic. Given, his past history of endobronchial squamous cell cancer, his current symptoms are concerning for pneumonia with possible bronchial obstruction from a recurrence of his cancer. He also has some symptoms of dysphagia and loss of appetite. He is being managed for pneumonia, dysphagia and bronchial obstruction from his cancer. Problem list 1. Sepsis from community acquired pneumonia vs post-obstructive pneumonia 2. Concern for bronchial obstruction from endobronchial squamous cell lung cancer 3. Dysphagia 4. Malnutrition 5. Alcohol abuse Plan 1. Sepsis from obstructive pneumonia vs post-obstructive pneumonia * Sputum culture now growing pseudomonal sensitive to ceftazidime * Sputum culture not yet sent-Please collect today * Follow up final blood and sputum cultures: BCs from 04/20/17 Coagulase negative staph (Contaminant) Blood culture 04/21/17-No growth till date. * Continue IV ceftazidime 1g Q 8 * Infectious disease consultation for antibiotic guidance * Bronchoscopy records from [place] show that patient did not have an endobronchial mass in May 2016, so the endobronchial mass on CT is likely new. Plan is for possible transfer to [place] to get a repeat bronchoscopy as he might also need some stenting which is not usually done here. He is also at high risk of bleeding due to his hx of a previous severe bleed after bronchoscopy that required embolization. * Monitor vital signs closely * Monitor CBC for WBC * PO tylenol for fever * c/w current pain medications 2. Dysphagia with concern for bronchial obstruction from recurrence of endobronchial lung cancer * CT Chest and CT neck with IV contrast shows obstructive bronchial lesion and tonsilar mass suspicious for cancer * Sputum cytology X 3-rare squamous metaplastic cells are seen * Continue IV metronidazole 500mg Q8 hrs * S/P draining of a hypopharyngeal abscess by windows consultant-Dr. Lyle at bedside. She recommends continuing antibiotics including flagyl and outpatient pharyngeal biopsy after current infection is cleared. * Speech and swallow evaluation recommend mechanical ground nectar thick diet after Modified Barium Swallow. He is currently tolerating this well. * Continue TRC 3. Malnutrition with hyponatremia-resolved * Hyponatremia is stable. Likely related to chronic malnutrition and alcoholism * Monitor electrolytes and Na Nutrition consult appreciated 4. Alcohol abuse * Stated that his last drink was 3 days prior to presentation * Ativan discontinued CIWA scores have remained 0 and pt has not required any IV Lorazepam so far. 5. DVT prophylaxis SC enoxaparin 40mg daily Had IVC filter placed in 2012 6. Code status Full code Problem List: 1. Obstructive pneumonia 2. Dysphagia 3. Sepsis Pain Ratin Pain Location: chest/musculoskeletal from coughing Pain Goal: Remain pain free Pain Plan: continue current pain plan Tomorrow's Labs & Rationales: none-will be transferred to [place] today RYAN BATES 04/27/17 0930: Attending MD Review Statement Attending Statement Attending MD Statement: examined this patient, discuss w/resident/PA/TAKER OFF, agreed w/resident/PA/TAKER OFF, discussed with family, reviewed EMR data (avail), discussed with nursing, discussed with case mgmt, reviewed images, amended to note Attending Assessment/Plan: ASSESSMENT 1. GUY pneumonia 2. Sepsis resolved 3. Malnutrition 4. Unintentional weight loss 5. Dysphagia MBS recommend nectar thick liquid 6. Endobronchial mass with sqaumous cell carcinoma 2012 s/p chemoradiaiton. 7. Pseudomonas in sputum culture. 8. Hyponatremia on admission 9. alchol abuse with cirrhosis. Plan - cont current care - switched abx to Ceftaz, completed Azithromycin x3 days, on flagyl. appreicate ID consult. - Sputum cultures s/o pseudomonas. - Nutrition consulted and follow recommendations - Pulmonary on babetsy, plan for bronch as per pulm. f/u cytology suggestive of squamous cells. - Hyponatremia improving. - PRN Ativan per CIWA in case of eventual withdrawal symptoms - nectar thick liquid diet - DVT PPx - f/u medical records - d/c planning to rehab. Overall poor prognosis.
--- NOTE | 2017-04-27 09:48 | PN- Pulmonary ---
Subjective HPI/Critical Care Issues: The patient is awake and alert. He reports he is feeling much improved. He continues to have a cough productive of green sputum, however this has improved with treatment. He has no history of hemoptysis. His shortness of breath is improved as well. Objective Current Medications: Current Medications Sig/Steven Start time Last Medication Dose Route Stop Time Status Admin Acetaminophen 650 MG Q6P PRN 04/20 1345 AC PO Albuterol Sulfate 3 ML BID 04/20 2200 AC 04/27 INH 0826 Ceftazidime 2,000 MG IQ8 04/24 1600 AC 04/27 IV 0858 Enoxaparin Sodium 40 MG DAILY 04/20 1326 AC 04/27 SC 0907 Folic Acid 1 MG DAILY 04/24 1041 AC 04/27 PO 0906 Hydromorphone HCl 0.6 MG Q4P PRN 04/22 0830 AC 04/27 IV 0904 Levothyroxine Sodium 0.1 MG DAILY AC 04/20 1536 AC 04/27 PO 0458 Lorazepam 0 Q1P PRN 04/20 1400 DC IV Metronidazole 500 MG IQ8 04/21 1645 AC 04/27 N/A 1 UNIT IV 0858 Multivitamins 1 TAB DAILY 04/24 1041 AC 04/27 PO 0907 Nicotine 21 MG DAILY 04/20 1615 AC 04/27 TOP 0907 Oxycodone HCl 5 MG Q6P PRN 04/20 1345 AC 04/27 PO 0611 Patient Medication 1 ED .STK-MED ONE 04/26 1347 DC Teaching ED 04/26 1348 Polyethylene Glycol 17 GM DAILY 04/26 1358 AC 04/27 PO 0907 Senna/Docusate Sodium 2 TAB DAILY 04/26 1358 AC 04/27 PO 0907 Thiamine HCl 100 MG DAILY 04/24 1042 AC 04/27 PO 0906 Vital Signs & I&O Last 24 Hrs of Vitals and I&O: Vital Signs Date Time Temp Pulse Resp B/P B/P Pulse O2 O2 Flow FiO2 Mean Ox Delivery Rate 04/27 0835 91 Nasal 1.5L Cannula 04/27 0631 98.6 80 20 102/60 93 Nasal 2.0L Cannula 04/27 0000 93 Nasal 2.0L Cannula 04/26 2236 97.8 88 20 116/70 93 Nasal Cannula 04/26 1905 93 Nasal 1.5L Cannula 04/26 1600 Nasal 2.0L Cannula 04/26 1441 98.0 87 20 114/64 94 Nasal 2.0L Cannula Intake & Output 04/27 1600 04/27 0800 06 0000 Intake Total 660 250 Output Total 400 Balance 260 250 Intake, IV 180 200 Intake, Oral 480 50 Output, Urine 400 Physical Exam General Appearance: chronically ill, thin, coughing Head: atraumatic, normal appearance Neck: supple, no palpable mass Respiratory: bilateral ronchi, improved air entry Cardiovascular: regular rate/rhythm, distant heart sounds Gastrointestinal: normal bowel sounds, soft, non-tender Extremities: no edema Skin: intact, normal color, warm/dry Impression/Plan Impression/Plan Impression/Plan: 1. Pseudomonas pneumonia. 2. Hypopharyngeal abscess, s/p I & D. 3. Progressive weight loss likely secondary to recurrent malignancy. 4. History of COPD without evidence of significant exacerbation. 5. DVT, s/p IVC filter, not on anticoagulation. 6. ETOH abuse. 7. History of endobronchial SCC in 2011. Recommendations: * Call placed to Dr. Cerrato regarding plan for bronchoscopy. Will make further decisions pending discussion. * Continue antibiotic therapy as per ID - Flagyl and ceftazidime. * Continue multivitamin, thiamine and folate. Monitor for ETOH withdrawl. * Sputum cytology results discussed with pathology - sputum is suspicious for squamous cell cancer but not diagnostic. * DVT prophylaxis at all times. * Continue all supportive care.
[2017-04-27 15:00] VITALS: BP 120/70
--- NOTE | 2017-04-27 15:29 | PN- Infect Dx ---
Subjective Subjective: Afebrile. He feels somewhat improved though continues to have a productive cough of yellow sputum and left-sided chest pain. Objective Last 24 Hrs of Vital Signs/I&O Vital Signs Date Time Temp Pulse Resp B/P B/P Pulse O2 O2 Flow FiO2 Mean Ox Delivery Rate 04/27 1500 98.7 68 20 120/70 96 /08 0835 91 Nasal 1.5L Cannula 04/27 0800 94 Nasal 2.0L Cannula 04/27 0631 98.6 80 20 102/60 93 Nasal 2.0L Cannula 04/27 0000 93 Nasal 2.0L Cannula 04/26 2236 97.8 88 20 116/70 93 Nasal Cannula 04/26 1905 93 Nasal 1.5L Cannula 04/26 1600 Nasal 2.0L Cannula Intake & Output 04/27 1600 04/27 0800 04/27 0000 Intake Total 1400 660 250 Output Total 670 400 Balance 730 260 250 Intake, IV 180 200 Intake, Oral 1400 480 50 Output, Urine 670 400 Physical Exam Other Physical Findings: He appears comfortable in no acute distress Lungs bronchial breath sounds on the left upper lung Heart regular rhythm with no murmur Extremities no cyanosis, clubbing or edema Results Last 24 Hours of Lab Results: Laboratory Tests 04/25 07 Hematology CBC w Diff NO MAN DIFF REQ WBC (4.8 - 10.8 /CUMM) 9.9 RBC (4.70 - 6.10 /CUMM) 2.74 L Hgb (14.0 - 18.0 G/DL) 8.8 L Hct (42 - 52 %) 26.8 L MCV (80.0 - 94.0 FL) 97.7 H MCH (27.0 - 31.0 PG) 31.9 H RDW (11.5 - 14.5 %) 14.9 H Plt Count (130 - 400 /CUMM) 266 MPV (7.4 - 10.4 FL) 6.9 L Gran % (42.2 - 75.2 %) 84.6 H Lymphocytes % (20.5 - 51.1 %) 6.4 L Monocytes % (1.7 - 9.3 %) 6.8 Eosinophils % (0 - 5 %) 2.1 Basophils % (0.0 - 2.0 %) 0.1 Absolute Granulocytes (1.4 - 6.5 /CUMM) 8.4 H Absolute Lymphocytes (1.2 - 3.4 /CUMM) 0.6 L Absolute Monocytes (0.10 - 0.60 /CUMM) 0.7 H Absolute Eosinophils (0.0 - 0.7 /CUMM) 0.2 Absolute Basophils (0.0 - 0.2 /CUMM) 0 PUBS MCHC (33.0 - 37.0 G/DL) 32.6 L Last 24 Hours of Mane Results: Sputum culture April 26 mixed silas with a light growth of yeast Assessment/Plan Impression: Stable on Ceftazidime and Flagyl Day 4 of treatment for presumed pseudomonas pneumonia/possible lung abscesses with temperatures and white blood cell count remaining normal. His CT scan did suggest the possibility of an endobronchial mass with a postobstructive process, and he will likely require bronchoscopy if his sputa for cytology are negative. His records from his [facility] hospitalization 1 year ago were reviewed, and it appears he did undergo embolization for hemoptysis at that time. His cytology, however, did not reveal any recurrence of his malignancy. He underwent I&D of a hypopharyngeal abscess 6 days ago, which is of unclear relevance to his current pulmonary infection. Suggestion: 1. Follow-up sputa for cytology 2. Further management with regard to bronchoscopy per Pulmonary 3. Continue Ceftazidime and Flagyl, but can consider change to an oral regimen, such as Ciprofloxacin and Flagyl, if he remains stable
--- NOTE | 2017-04-27 15:32 | Patient Discharge Instructions ---
Discharge Instructions General Discharge Information You were seen/treated for: Post obstructive pseudomonal PNA/sepsis New endobronchial lesion on CT scan You had these procedures: none Special Instructions: Patient is being transferred to [facility] Diet Recommended Diet: Regular Additional DIET Information: Mechanical Soft and [place] thick liquid Activity Activity Self Limited: Yes Acute Coronary Syndrome Inclusion Criteria At DC or during hospital stay patient has or had the following: ACS DIAGNOSIS No Discharge Core Measures Meds if any: Prescribed or Continued at Discharge Meds if any: NOT Prescribed or Continued at Discharge Congestive Heart Failure Inclusion Criteria At DC or during hospital stay patient has or had the following: CHF DIAGNOSIS No Discharge Core Measures Meds if any: Prescribed or Continued at Discharge Meds if any: NOT Prescribed or Continued at Discharge Cerebrovascular accident Inclusion Criteria At DC or during hospital stay patient has or had the following: CVA/TIA Diagnosis No Discharge Core Measures Meds if any: Prescribed or Continued at Discharge Meds if any: NOT Prescribed or Continued at Discharge Venous thromboembolism Inclusion Criteria VTE Diagnosis No VTE Type NONE VTE Confirmed by (Test) NONE Discharge Core Measures - Per Current guidelines, there needs to be overlap - treatment for the first 5 days of Warfarin therapy. - If discharged on Warfarin prior to 5 days of - overlap therapy, the patient will need to be - assessed for post discharge needs including - *Post discharge parental anticoagulation - *Warfarin and/or parental anticoagulation education - *Follow up date to check INR post discharge At least 5 days overlap therapy as Inpatient No Meds if any: Prescribed or Continued at Discharge Note: Overlap Therapy is Warfarin and Anticoagulant Meds if any: NOT Prescribed or Continued at Discharge Meds if any: Prescribed or Continued at Discharge Note: Overlap Therapy is Warfarin and Anticoagulant Meds if any: NOT Prescribed or Continued at Discharge
[2017-04-27] MEDS ORDERED: VITAMIN B-1100 MG PO (15:37)
[2017-04-27] MEDS ORDERED: SYNTHROID100 MCG PO (15:37)
[2017-04-27] MEDS ORDERED: CEFTAZIDIME2 GM IV (15:37)
[2017-04-27] MEDS ORDERED: FOLIC ACID1 M1 PO (15:37)
[2017-04-27] MEDS ORDERED: FLAGYL500 MG PO (15:37)
== END 2017-04-27 20:15 | disposition short-term general hospital (02) | DRG 710 ==
LOC: ERH 08:26 → ERHI 10:55 → 2NA 10:55 → ENRESERV 11:30 → ENTRNSPT 12:05 → EDTRNSPT 12:52 → EDTRNSPTTYP 12:52 → EDTRNSPTSTS 12:52 → 2NA 12:55 → CMPTRNSPT 13:02 → 2NA 15:29
PROVIDERS: Emergency Medicine; Internal Medicine; ADMIT Internal Medicine
PROC: 0C9M8ZZ Drainage of Pharynx, Via Natural or Artificial Opening Endoscopic (ICD-10-PCS; principal; 2017-04-21)
DX: A41.9 Sepsis, unspecified organism (principal); J15.1 Pneumonia due to Pseudomonas; F17.210 Nicotine dependence, cigarettes, uncomplicated; E87.1 Hypo-osmolality and hyponatremia; R64 Cachexia; Z68.20 Body mass index [BMI] 20.0-20.9, adult; E46 Unspecified protein-calorie malnutrition; Z85.12 Personal history of malignant neoplasm of trachea; F10.10 Alcohol abuse, uncomplicated; Y90.0 Blood alcohol level of less than 20 mg/100 ml; J39.1 Other abscess of pharynx; R13.10 Dysphagia, unspecified
CPT/HCPCS: 2NASP; 36415; 74230; 81001; 82436; 87040; 87070; 87071; 87086; 93005; 93010; 96365; 97110-GO; 97112-GO; 97116-GO; 97161-GP; 97530-GO; G0480; J0456; J0696; J0713; J1650; J3490; J7040; J7042